=== PATIENT | female | born 1970 | race Native Hawaiian/Other Pacific Islander ===

== ENCOUNTER 2018-05-21 11:41 | Inpatient (IN) | payer OTHER ==
[2018-05-21 12:08] VITALS: BMI 19.0
--- NOTE | 2018-05-21 12:25 | C.PDOC ---
History Of Present Illness <Keyur Leung - Last Filed: 05/21/18 20:59> <My Palomino - Last Filed: 05/23/18 09:07> 47 year old female presents to the ED complaining of new onset shortness of breath and hypoxia since this morning. She has a history of metastatic breast cancer, currently pending finding clinical trial for her cancer. New onset of bilateral leg swelling. Denies chest pain, fever, or leg pain. Patient has a history of chronic cough. NEW ONSET SOB, HYPOXIA SINCE THIS MORNING. HO MET BREAST CA, CURRENTLY PENDING FINDING CLIN TRIAL FOR HER CANCER. NEW ONSET B/L LEG SWELL. NO CP. HO CHRONIC COUGH. NO FEVER. NO LEG PAIN EXAM MILD DIST NONTOXIC LUNGS R>L BASILAR RALES TACHYPNEA SPEAKING FULL SENTENCES CV RRR TACHY 1+PITTING EDEMA B/L REMAINDER NEG (My Palomino) <Keyur Leung - Last Filed: 05/21/18 20:59> History Per: Patient History/Exam Limitations: no limitations Onset/Duration Of Symptoms: Hrs Current Symptoms Are (Timing): Still Present Associated Symptoms: Ankle/Leg Swelling. denies: Fever, Chest Pain <My Palomino - Last Filed: 05/23/18 09:07> Time Seen by Provider: 05/21/18 12:25 Chief Complaint (Nursing): Shortness Of Breath Past Medical History Reviewed: Historical Data, Nursing Documentation, Vital Signs - Medical History Other PMH: Metastatic breast cancer Surgical History: Appendectomy (in [facility]), Cholecystectomy (in [facility]) Family History: States: Unknown Family Hx - Social History Hx Alcohol Use: No Hx Substance Use: No - Immunization History Hx Tetanus Toxoid Vaccination: No Hx Influenza Vaccination: No Hx Pneumococcal Vaccination: No <My Palomino - Last Filed: 05/23/18 09:07> Vital Signs: Last Vital Signs Temp 98.2 F 05/23/18 07:30 Pulse 105 H 05/23/18 08:29 Resp 18 05/23/18 07:30 BP 98/63 L 05/23/18 07:30 Pulse Ox 98 05/23/18 07:30 Review Of Systems Except As Marked, All Systems Reviewed And Found Negative. Constitutional: Negative for: Fever Cardiovascular: Positive for: Edema (Bilateral leg swelling ) Respiratory: Positive for: Shortness of Breath, Other (Hypoxia ) Musculoskeletal: Negative for: Leg Pain <My Palomino - Last Filed: 05/23/18 09:07> Physical Exam - Physical Exam Appears: Non-toxic, Other (Mild distress) Skin: Normal Color, Warm, Dry Head: Atraumatic, Normacephalic Eye(s): bilateral: Normal Inspection Nose: Normal Oral Mucosa: Moist Neck: Supple Chest: Symmetrical Cardiovascular: Edema (1+PITTING EDEMA B/L), Other (RRR, Tachycardic ) Respiratory: Rales (R>L BASILAR RALES), Other ( TACHYPNEA, SPEAKING FULL SENTENCES) Neurological/Psych: Oriented x3, Normal Speech Gait: Steady <My Palomino - Last Filed: 05/23/18 09:07> ED Course And Treatment - Laboratory Results Result Diagrams: 05/21/18 13:04 05/21/18 13:04 <Keyur Leung - Last Filed: 05/21/18 20:59> - Laboratory Results Result Diagrams: 05/21/18 13:04 05/21/18 13:04 ECG: Interpreted By Me, Viewed By Me ECG Rhythm: Sinus Tachycardia Rate From EC O2 Sat by Pulse Oximetry: 90 (RA) Pulse Ox Interpretation: Normal - CT Scan/US CT Chest Other Rad Studies (CT/US): Read By Radiologist, Radiology Report Reviewed CT/US Interpretation: Accession No. : [id number]. Patient Name / ID : ANTONIO Elizabeth / [id number]. Exam Date : 05/21/2018 15:53:04 ( Approved ) . Study Comment : Sex / Age : F / 47Y. Creator : Maryann Yun. Dictator : Ilir Lilly MD. [employer]fuels Research Scientist : Qc Analyst : Ilir Lilly MD. Approver2 : Report Date : 05/21/2018 15:59:54. My Comment : . CT chest pulmonary angiogram. History: Shortness of breath. History of metastatic cancer. Comparison: None available. Technique: Multiple contiguous axial images were performed through the chest utilizing pulmonary embolism protocol with the use of intravenous contrast. Subsequently, sagittal coronal reformatted images as well sagittal coronal MIPS reformatted images were obtained. This CT exam was performed using one or more of the following dose reduction techniques: Automated exposure control, adjustment of the mA and/or kV according to patient size, and/or use of iterative reconstruction technique. Findings: No evidence of acute pulmonary embolism. No evidence acute aortic dissection. Right lung: Moderate to large loculated right pleural effusion. Associated lobulated pleural thickening circumferentially involving the right geetha thorax as well as the fissures suggestive for pleural metastatic disease. Innumerable pulmonary masses throughout the right lung consistent with metastatic disease. For example at the right lung apex measuring 2.1 centimeters , right upper lobe measuring 8 millimeters more inferiorly within the right upper lobe measuring 1.4 centimeters. Additional pulmonary masses seen within the right middle and lower lobes. Focal consolidation and/or atelectasis within a large portion of right middle and lower lobes with some minimal aeration in the right lower lobe noted. Left lung: Small lobulated left pleural effusion with lobulated pleural thickening along the posterior aspect of the left lower lobe also concerning for pleural metastatic disease. Multiple pleural-based masses along the left geetha thorax for example within the left upper lobe laterally measuring up to 1.7 centimeters concerning for metastatic disease. Multiple pulmonary masses some of which are pleural-based seen throughout the left lung consistent with known metastatic disease. Innumerable pulmonary nodules and smaller pulmonary masses also noted throughout the lungs. Prominent mass for example is noted at the left upper lobe anteriorly measuring 2.1 centimeters on series 4, image 28 at the level of the prevascular space. There is tumor encasement of the left main pulmonary artery as well as encasement of the segmental vessels with tumor burden. Prominent consolidation and/or atelectasis of the inferior left upper lobe and lingula. Additional prominent consolidation in the posterior left lower lobe. Multiple pulmonary mass is noted within the left lower lobe. Trachea thru central airways are patent. No significant axillary adenopathy. Heterogeneity of the thyroid. Left paratracheal lymphadenopathy measures 3.8 centimeters. Tumor encasement of the left main pulmonary artery and branch vessels. Right hilar adenopathy measures 1.5 centimeters. Multiple low-attenuation foci/lesions throughout the liver with intrahepatic biliary ductal dilatation. Clinical correlation. Nodular thickening of the adrenal glands. Degenerative changes in the spine. Impression: No evidence of acute pulmonary embolism. Extensive metastatic disease within the lung duran as described above. Multiple areas of consolidation as described above in both lungs. Bilateral pleural effusions larger on the right. Prominent lymphadenopathy throughout the mediastinum with prominent tumor encasement of the left main pulmonary artery and branch vessels. Additional findings as above. Progress Note: Patient assessed and examined. CT angio chest ordered and reviewed. EKG and CXR ordered and reviewed by me. Patient given Lovenox 70mg SC. Labs ordered. <CandelarioMy - Last Filed: 05/23/18 09:07> Progress <Keyur Leung - Last Filed: 05/21/18 20:59> - Data Reviewed Data Reviewed: Lab, Diagnostic imaging, EKG, Old records - Critical Care Citical Care: Excluding Proc Time Critical Care Time: 90 minutes - Continuity of Care Discussed patient case with:: Patient, Family-HIPPA compliant, PMD <My Palomino - Last Filed: 05/23/18 09:07> - Re-Evaluation Re-evaluation Note: 05/21/18 16:46 EXAM UNCH. PERSIST HYPOXIA D/W DR Christina LEUNG WILL ADMIT (My Palomino) Disposition <Keyur Leung - Last Filed: 05/21/18 20:59> Counseled Patient/Family Regarding: Studies Performed, Diagnosis - Disposition Disposition Time: 16:47 - POA Present On Arrival: None <CandelarioMy - Last Filed: 05/23/18 09:07> - Disposition Disposition: HOSPITALIZED Condition: STABLE - Clinical Impression Clinical Impression: Hypoxemia, Dyspnea, Metastatic cancer <Keyur Leung - Last Filed: 05/21/18 20:59> - Scribe Statement The provider has reviewed the documentation as recorded by the Scribe <CandelarioMy - Last Filed: 05/23/18 09:07> - Scribe Statement Radha Dumont All medical record entries made by the Scribe were at my direction and personally dictated by me. I have reviewed the chart and agree that the record accurately reflects my personal performance of the history, physical exam, medical decision making, and the department course for this patient. I have also personally directed, reviewed, and agree with the discharge instructions and disposition. (My Palomino) Decision To Admit <Keyur Leung - Last Filed: 05/21/18 20:59> - Pt Status Changed To: Hospital Disposition Of: Inpatient - Admit Certification Admit to Inpatient:: After my assessment, the patient will require hospitalization for at least two midnights. This is because of the severity of symptoms shown, intensity of services needed, and/or the medical risk in this patient being treated as an outpatient. - InPatient: Physician Admission Certification: I certify that this patient requires 2 or more midnights of care for the following reason:: SEE NOTE - . Bed Request Type: Telemetry Admitting Physician: Keyur Leung <My Palomino - Last Filed: 05/23/18 09:07> - . Patient Diagnosis: Hypoxemia, Dyspnea, Metastatic cancer
[2018-05-21] MEDS ORDERED: Enoxaparin 40 mg Syringe SC STA (12:47)
[2018-05-21 13:11] LABS: BASO # 0.1 K/uL (0.0-0.2); BASO % 1.2 % (0.0-2.0); EOS # 0.6 K/uL (0.0-0.7); EOS % 7.5 % (0.0-4.0); LYMPH # 1.5 K/uL (1.0-4.3); LYMPH % 18.7 % (20.0-40.0); MEAN CELL VOLUME 85.8 fL (81.0-99.0); MEAN CORPUSCULAR HEMOGLOBIN 29.1 pg (27.0-31.0); MEAN CORPUSCULAR HGB CONC 33.9 g/dL (33.0-37.0); MEAN PLATELET VOLUME 6.2 fL (7.2-11.7); MONO # 0.7 K/uL (0.0-0.8); MONO % 9.5 % (0.0-10.0); NEUT % 63.1 % (50.0-75.0); RBC 4.45 Mil/uL (3.80-5.20); RED CELL DISTRIBUTION WIDTH 13.1 % (11.5-14.5); WHITE BLOOD COUNT 7.9 K/uL (4.8-10.8)
[2018-05-21 13:19] LABS: INR 1.1; PROTHROMBIN TIME 12.2 SECONDS (9.7-12.2)
[2018-05-21 13:22] LABS: ALB/GLOB RATIO 1.1 (1.0-2.1); ALBUMIN 4.1 g/dL (3.5-5.0); ALT/SGPT 35 U/L (9-52); AST/SGOT 46 U/L (14-36); BLOOD UREA NITROGEN 3 mg/dL (7-17); CALCIUM 9.3 mg/dl (8.6-10.4); GFR AFRICAN-AMERICAN > 60; GFR NON-AFRICAN AMERICAN > 60
[2018-05-21 13:34] LABS: B-TYPE NATRIURETIC PEPTIDE 1960 pg/mL (0-450)
[2018-05-21] MEDS ORDERED: Enoxaparin 80 mg Syringe ONE (13:51)
[2018-05-21 14:02] LABS: ABG ALLEN TEST POS; ARTERIAL BLOOD GAS HCO3 31.4 mmol/L (21-28); ARTERIAL BLOOD GAS O2 SAT 97.5 % (95-98); ARTERIAL BLOOD GAS PCO2 47 mm/Hg (35-45); ARTERIAL BLOOD GAS PH 7.46 (7.35-7.45); ARTERIAL BLOOD GAS PO2 79 mm/Hg (80-100); ARTERIAL BLOOD GAS TCO2 34.8 mmol/L (22-28)
[2018-05-21] MEDS ORDERED: Iodixanol 320 MG/ML 100 ML BOTTLE IV ONE (15:09)
--- NOTE | 2018-05-21 15:16 | RAD ---
Chest x-ray single frontal view History: Shortness of breath. History of metastatic cancer. Comparison: 05/21/2018 Findings: Moderate right and small left pleural effusion. Prominent focal consolidative changes seen at the right lung base and to a lesser extent left lung base. Nodular masslike opacity seen within the right mid lung zone. This may represent underlying metastatic disease. Prominent lobulated pleural thickening along the right geetha thorax from the right lung apex to the right lung base. Lobulated pleural density along the left lung apex. Bilateral hilar prominence. Cardiomegaly. Degenerative changes in the spine. Impression: Moderate right and small left pleural effusion. Prominent focal consolidative changes seen at the right lung base and to a lesser extent left lung base. Nodular masslike opacity seen within the right mid lung zone. This may represent underlying metastatic disease. Prominent lobulated pleural thickening along the right geetha thorax from the right lung apex to the right lung base. Lobulated pleural density along the left lung apex. Bilateral hilar prominence. Cardiomegaly.
--- NOTE | 2018-05-21 16:28 | CT ---
CT chest pulmonary angiogram History: Shortness of breath. History of metastatic cancer. Comparison: None available. Technique: Multiple contiguous axial images were performed through the chest utilizing pulmonary embolism protocol with the use of intravenous contrast. Subsequently, sagittal coronal reformatted images as well sagittal coronal MIPS reformatted images were obtained. This CT exam was performed using one or more of the following dose reduction techniques: Automated exposure control, adjustment of the mA and/or kV according to patient size, and/or use of iterative reconstruction technique. Findings: No evidence of acute pulmonary embolism. No evidence acute aortic dissection. Right lung: Moderate to large loculated right pleural effusion. Associated lobulated pleural thickening circumferentially involving the right geetha thorax as well as the fissures suggestive for pleural metastatic disease. Innumerable pulmonary masses throughout the right lung consistent with metastatic disease. For example at the right lung apex measuring 2.1 centimeters, right upper lobe measuring 8 millimeters more inferiorly within the right upper lobe measuring 1.4 centimeters. Additional pulmonary masses seen within the right middle and lower lobes. Focal consolidation and/or atelectasis within a large portion of right middle and lower lobes with some minimal aeration in the right lower lobe noted. Left lung: Small lobulated left pleural effusion with lobulated pleural thickening along the posterior aspect of the left lower lobe also concerning for pleural metastatic disease. Multiple pleural-based masses along the left geetha thorax for example within the left upper lobe laterally measuring up to 1.7 centimeters concerning for metastatic disease. Multiple pulmonary masses some of which are pleural-based seen throughout the left lung consistent with known metastatic disease. Innumerable pulmonary nodules and smaller pulmonary masses also noted throughout the lungs. Prominent mass for example is noted at the left upper lobe anteriorly measuring 2.1 centimeters on series 4, image 28 at the level of the prevascular space. There is tumor encasement of the left main pulmonary artery as well as encasement of the segmental vessels with tumor burden. Prominent consolidation and/or atelectasis of the inferior left upper lobe and lingula. Additional prominent consolidation in the posterior left lower lobe. Multiple pulmonary mass is noted within the left lower lobe. Trachea thru central airways are patent. No significant axillary adenopathy. Heterogeneity of the thyroid. Left paratracheal lymphadenopathy measures 3.8 centimeters. Tumor encasement of the left main pulmonary artery and branch vessels. Right hilar adenopathy measures 1.5 centimeters. Multiple low-attenuation foci/lesions throughout the liver with intrahepatic biliary ductal dilatation. Clinical correlation. Nodular thickening of the adrenal glands. Degenerative changes in the spine. Impression: No evidence of acute pulmonary embolism. Extensive metastatic disease within the lung duran as described above. Multiple areas of consolidation as described above in both lungs. Bilateral pleural effusions larger on the right. Prominent lymphadenopathy throughout the mediastinum with prominent tumor encasement of the left main pulmonary artery and branch vessels. Additional findings as above.
[2018-05-21] MEDS: Albuterol 0.083% Inhal Sol (2.5 mg/3 mL) UD INH SCH (20:24)
--- NOTE | 2018-05-21 20:54 | CP.PCM.HP ---
History of Present Illness - History of Present Illness History of Present Illness: > Pt had called emergently to be seen or prescribed abx for a cough that's been going on for about a month. Pt was coughing uncontrollably when seen. Auscultation showed wheezing in multiple places. Gave a trial of an inhaled steroid with a long acting beta-agonist. Pt felt relief in a few minutes, and had stopped coughing enough that she was able to tell her story. She had finished a bottle of Mucinex without relief in the last month. She had also been using her Ventolin which she had brought in at my request. I instructed pt on the correct way of using the inhaler, as she was not inhaling the medicine, which stayed in her mouth and subsequently released with the next exhalation. > Used the see 1, do 1 maxim using the inhaler, and pt felt immediate relief. > Because of the length of patient's illness, suggested that pt obtain a CXR to r/o pneumonia. Pt agreed to get it the same afternoon. > Received a call the following day around lunchtime, pt's 2 view xray showed possible malignancy especially in the upper lobes of both lungs. Called pt's oncologist within a few minutes and advised him of the results of the CXR and forwarded the report to him the same day, 03/15/2018. > Having discharged my task and turned her care to her oncologist, i was called in again to her case after she had a thoracentesis that resulted in severe pain for patient. Since I had received no updates from Oncology, plan was to try and stage while in patient. Unbeknownst to me, pt was scheduled for biopsy with IR the following day. No fasting schedule issued nor preliminary bloodwork ordered. When things were finally straightened outI had already gotten the gist of what was missing in the work up and proceeded to get it scheduled and done. Pathology came out 6 days later, and I obtained a copy of it for pt the following morning after she informed me the results were out. I scheduled also a face to face meeting the following Tuesday with patient and her family, where we discussed possible options for her treatment, which would probably be palliative at the most. Hence, pt is aware that her condition is without cure at the present time, and no protocol exists for treating it, as far as i can surmise. > This morning, I was called by the pt's daughter who reported that they couldn' t get her O2 sat above 90, and I advised them to bring her to this facility for further management and so that things could be set up to provide for pt's comfort at home, as well as get a 2nd opinion on other outstanding issues that can hopefully make pt more cofortable in her last days. Present on Admission - Present on Admission Any Indicators Present on Admission: No History of DVT/PE: No History of Uncontrolled Diabetes: No Urinary Catheter: No Decubitus Ulcer Present: No Review of Systems - Review of Systems Systems not reviewed;Unavailable: Respiratory Distress Review of Systems: above and coughing - Breasts Breasts: Other Additional comments: s/p mastectomy, R - Respiratory Respiratory: Cough, Dyspnea, Pain with Coughing, Other Additional comments: blood tinged-sputum Past Patient History - Past Medical History & Family History Past Medical History?: Yes - Past Social History Smoking Status: Never Smoked - PULMONARY Hx Pulmonary Edema: Yes - HEMATOLOGICAL/ONCOLOGICAL Hx Cancer: Yes Other/Comment: Breast CA and R lumpectomy/radiation - MUSCULOSKELETAL/RHEUMATOLOGICAL Hx Falls: No - GASTROINTESTINAL Hx Gall Bladder Disease: Yes Other/Comment: Cholecystectomy - GENITOURINARY/GYNECOLOGICAL Other/Comment: Hysterectomy d/t endometriosis - PSYCHIATRIC Hx Substance Use: No - SURGICAL HISTORY Hx Appendectomy: Yes (in [facility]) Hx Cholecystectomy: Yes (in [facility]) Hx Hysterectomy: Yes Other/Comment: R lumpectomy - ANESTHESIA Hx Anesthesia: Yes Hx Anesthesia Reactions: No Hx Malignant Hyperthermia: No Has any member of the family had a problem w/ anesthesia?: No Meds Allergies/Adverse Reactions: Allergies Allergy/AdvReac Type Severity Reaction Status Date / Time simvastatin Allergy Severe SWELLING Verified 05/21/18 12:00 Physical Exam - Constitutional Appears: In Acute Distress Additional comments: speaking in phrases - Head Exam Head Exam: ATRAUMATIC, NORMAL INSPECTION, NORMOCEPHALIC - Eye Exam Eye Exam: EOMI, Normal appearance Pupil Exam: NORMAL ACCOMODATION, PERRL - ENT Exam ENT Exam: absent: Mucous Membranes Dry, Mucous Membranes Moist, Normal Exam, Normal External Ear Exam, Normal Oropharynx, TM's Normal Bilaterally - Neck Exam Additional comments: + JVD - Respiratory Exam Respiratory Exam: Prolonged Expiratory Phase, Wheezes, Respiratory Distress - Cardiovascular Exam Cardiovascular Exam: Tachycardia, REGULAR RHYTHM - GI/Abdominal Exam GI & Abdominal Exam: Normal Bowel Sounds - Rectal Exam Rectal Exam: Deferred - Extremities Exam Extremities exam: Positive for: normal inspection - Back Exam Back exam: NORMAL INSPECTION - Neurological Exam Neurological exam: Alert - Psychiatric Exam Psychiatric exam: Depressed, Normal Mood Results - Vital Signs Recent Vital Signs: Last Vital Signs Temp 98.3 F 05/21/18 12:08 Pulse 113 H 05/21/18 20:24 Resp 22 05/21/18 18:32 BP 98/53 L 05/21/18 16:33 Pulse Ox 96 05/21/18 18:32 - Labs Result Diagrams: 05/21/18 13:04 05/21/18 13:04 Labs: Laboratory Results - last 24 hr 05/21/18 05/21/18 05/21/18 13:04 13:04 13:04 WBC 7.9 RBC 4.45 Hgb 13.0 Hct 38.2 MCV 85.8 MCH 29.1 MCHC 33.9 RDW 13.1 Plt Count 608 H MPV 6.2 L Neut % (Auto) 63.1 Lymph % (Auto) 18.7 L [place] % (Auto) 9.5 Eos % (Auto) 7.5 H Baso % (Auto) 1.2 Neut # (Auto) 5.0 Lymph # (Auto) 1.5 [place] # (Auto) 0.7 Eos # (Auto) 0.6 Baso # (Auto) 0.1 PT 12.2 INR 1.1 APTT 28 Puncture Site pCO2 pO2 HCO3 ABG pH ABG Total CO2 ABG O2 Saturation ABG Base Excess Christopher Test ABG Potassium Glucose Lactate Liter Flow Sodium 132 Potassium 4.5 Chloride 85 L Carbon Dioxide 37 H Anion Gap 14 BUN 3 L Creatinine 0.4 L Est GFR ( Amer) > 60 Est GFR (Non-Af Amer) > 60 Random Glucose 114 H Calcium 9.3 Total Bilirubin 0.6 AST 46 H ALT 35 Alkaline Phosphatase 129 H Troponin I < 0.0120 NT-Pro-B Natriuret Pep 1960 H Total Protein 7.9 Albumin 4.1 Globulin 3.8 Albumin/Globulin Ratio 1.1 Arterial Blood Potassium 05/21/18 13:57 WBC RBC Hgb Hct MCV MCH MCHC RDW Plt Count MPV Neut % (Auto) Lymph % (Auto) [place] % (Auto) Eos % (Auto) Baso % (Auto) Neut # (Auto) Lymph # (Auto) [place] # (Auto) Eos # (Auto) Baso # (Auto) PT INR APTT Puncture Site Lra pCO2 47 H pO2 79 L HCO3 31.4 H ABG pH 7.46 H ABG Total CO2 34.8 H ABG O2 Saturation 97.5 ABG Base Excess 8.3 H Christopher Test Pos ABG Potassium 3.5 L Glucose 101 Lactate 1.5 Liter Flow 2.0 Sodium 133.0 Potassium Chloride 96.0 L Carbon Dioxide Anion Gap BUN Creatinine Est GFR ( Amer) Est GFR (Non-Af Amer) Random Glucose Calcium Total Bilirubin AST ALT Alkaline Phosphatase Troponin I NT-Pro-B Natriuret Pep Total Protein Albumin Globulin Albumin/Globulin Ratio Arterial Blood Potassium 3.5 L Assessment & Plan (1) Metastatic breast cancer Assessment and Plan: revisit options for treatment, if any, including clinical trials for triple negative breast CA Status: Acute (2) Dyspnea Assessment and Plan: and Hypoxemia: consult Heme/Onc Dr. Vicente Calles. Discussed primarily lung mets surrounding the left brnchus. Broached topiuc to Heme/POnc if a possible palliative treatment to ease pt's hypoxia and tachypnea. Latter to discuss with Radiation Oncology Status: Acute (3) Hypoxemia Status: Acute (4) Fatigue due to sleep pattern disturbance Assessment and Plan: 2ndry to choking of air inflow by mets surrounding L bronchus Status: Acute (5) Cough Assessment and Plan: cough reflex working as expected in response to hypoxemia Status: Acute Decision To Admit - Pt Status Changed To: Hospital Disposition Of: Inpatient - Admit Certification Admit to Inpatient:: After my assessment, the patient will require hospitalization for at least two midnights. This is because of the severity of symptoms shown, intensity of services needed, and/or the medical risk in this patient being treated as an outpatient. - InPatient: Physician Admission Certification:: After my assessment, the patient will require hospitalization for at least two midnights. This is because of the severity of symptoms shown, intensity of services needed, and/or the medical risk in this patient being treated as an outpatient. - . Bed Request Type: Telemetry
[2018-05-21] MEDS: Enoxaparin 30 mg Syringe SC SCH (22:23)
[2018-05-21] MEDS: Promethazine/Cod 6.25mg-10mg/5ml Syr UD PO PRN (23:39)
[2018-05-22] MEDS: Albuterol 0.083% Inhal Sol (2.5 mg/3 mL) UD INH SCH ×6 (00:22→19:09)
[2018-05-22] MEDS: Promethazine/Cod 6.25mg-10mg/5ml Syr UD PO PRN (03:48)
[2018-05-22] MEDS: Enoxaparin 30 mg Syringe SC SCH ×2 (09:33→22:36)
--- NOTE | 2018-05-22 19:03 | CP.PCM.PN ---
Subjective - Date & Time of Evaluation Date of Evaluation: 05/22/18 Time of Evaluation: 19:02 - Subjective Subjective: Pt seen and examined at bedside. Awaiting consult on patient who was admitted for hypoxemia. In the meantime, working on pt's O2 need at home, and will order PT with and without O2 to determine baseline oxygenation status and justify insurance requirements for home O2. Late today, seen by Heme/Onc and recommendations to follow. Objective - Vital Signs/Intake and Output Vital Signs (last 24 hours): Temp Pulse Resp BP Pulse Ox 98 F 102 H 20 96/65 L 98 05/22/18 16:00 05/22/18 16:48 05/22/18 16:00 05/22/18 16:00 05/22/18 16:00 - Medications Medications: Current Medications Acetaminophen (Tylenol 325mg Tab) 650 mg PO Q6 PRN PRN Reason: Pain, moderate (4-7) Last Admin: 05/22/18 13:04 Dose: 650 mg Albuterol Sulfate (Albuterol 0.083% Inhal Yanci (2.5 Mg/3 Ml) Ud) 2.5 mg INH RQ4 JURGEN Last Admin: 05/22/18 16:05 Dose: Not Given Enoxaparin Sodium (Lovenox) 30 mg SC 1000,2200 JURGEN Last Admin: 05/22/18 09:33 Dose: 30 mg Morphine Sulfate (Morphine) 2 mg IVP Q3H JURGEN Last Admin: 05/22/18 09:35 Dose: Not Given Morphine Sulfate (Morphine Immediate Release Tab) 15 mg PO Q6 PRN PRN Reason: Pain, severe (8-10) Stop: 05/25/18 12:43 Pneumococcal Polyvalent Vaccine (Pneumovax 23 Vaccine) 0.5 ml IM .ONCE ONE Stop: 05/23/18 12:01 Promethazine HCl/Codeine (Phenergan/Codeine Oral Syrup) 5 ml PO Q4 PRN PRN 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 JVD) - Respiratory Exam Additional comments: + wheezing L>R - Cardiovascular Exam Cardiovascular Exam: REGULAR RHYTHM - GI/Abdominal Exam GI & Abdominal Exam: Normal Bowel Sounds - Rectal Exam Rectal Exam: Deferred - Neurological Exam Neurological Exam: Alert, Awake, CN II-XII Intact, Normal Gait, Oriented x3 Neuro motor strength exam: Left Upper Extremity: 4, Right Upper Extremity: 4, Left Lower Extremity: 3, Right Lower Extremity: 3 - Psychiatric Exam Psychiatric exam: Anxious, Depressed, Normal Mood - Skin Skin Exam: Dry, Intact, Normal Color Assessment and Plan (1) Metastatic breast cancer Assessment & Plan: stable at this. Awaiting Heme/Onc input as well as Pulmonary. Status: Acute (2) Dyspnea Assessment & Plan: on neb treatments Status: Acute (3) Hypoxemia Assessment & Plan: on continuous O2 Status: Acute (4) Fatigue due to sleep pattern disturbance Assessment & Plan: will start small dose of sedative or hypnotic to promote sleep Status: Acute (5) Cough Assessment & Plan: more from cough reflex 2ndry to inadequate oxygenation bec of pulmonary mets with decreased area for aeration Status: Acute
[2018-05-22] MEDS: Promethazine DM 6.25 mg-15 mg/5 ml Syrup PO SCH (20:45)
--- NOTE | 2018-05-22 22:17 | CP.PCM.CON ---
History of Present Illness - History of Present Illness History of Present Illness: 47 year old female with a history of stage IV breast cancer (triple negative) to the lymph nodes and lung, presenting with worsening shortness of breath, cough, and hypoxia. The patient is awaiting treatment on a clinical trial ( chemotherapy + parp inhibitor at [facility]) and has an appointment as [facility] for immunotherapy trial consideration. She was initially diagnosed with localized breast cancer and treated with neoadjuvant chemotherapy, followed by lumpectomy , and adjuvant radiotherapy. She was following with her oncologist Dr. Craft who sw her in February for her breathing complications. A percutaneous biopsy was done at [facility] which confirmed recurrent and metastatic breast cancer. She currently notes to progressive shortness of breath and cough. She denies fevers and chills. She does have chest pain with deep breathing. A CT angio of the chest was negative for PE. Past medical history: Stage IV breast cancer Past surgical history: Lumpectomy, port insertion and removal, appendectomy, cholecystectomy, hysterectomy Family history: Aunt had ovarian cancer in her 50s Social history: Denies tobacco, alcohol, and illicit drug use. Allergies: Simvastatin Review of systems: All remaining review of systems including HEENT, cardiovascular, respiratory, gastrointestinal, genitourinary, musculoskeletal, dermatologic, neurologic, and psychiatric are negative unless mentioned in the HPI Past Patient History - Past Medical History & Family History Past Medical History?: Yes - Past Social History Smoking Status: Never Smoked - PULMONARY Hx Pulmonary Edema: Yes - HEMATOLOGICAL/ONCOLOGICAL Hx Cancer: Yes Other/Comment: Breast CA and R lumpectomy/radiation - MUSCULOSKELETAL/RHEUMATOLOGICAL Hx Falls: No - GASTROINTESTINAL Hx Gall Bladder Disease: Yes Other/Comment: Cholecystectomy - GENITOURINARY/GYNECOLOGICAL Other/Comment: Hysterectomy d/t endometriosis - PSYCHIATRIC Hx Substance Use: No - SURGICAL HISTORY Hx [facility]ectomy: Yes (in [place] [facility]) Hx Cholecystectomy: Yes (in [facility]) Hx Hysterectomy: Yes Other/Comment: R lumpectomy - ANESTHESIA Hx Anesthesia: Yes Hx Anesthesia Reactions: No Hx Malignant Hyperthermia: No Has any member of the family had a problem w/ anesthesia?: No Meds Allergies/Adverse Reactions: Allergies Allergy/AdvReac Type Severity Reaction Status Date / Time simvastatin Allergy Severe SWELLING Verified 05/21/18 12:00 - Medications Medications: Current Medications Acetaminophen (Tylenol 325mg Tab) 650 mg PO Q6 PRN PRN Reason: Pain, moderate (4-7) Last Admin: 05/22/18 13:04 Dose: 650 mg Albuterol Sulfate (Albuterol 0.083% Inhal Yanci (2.5 Mg/3 Ml) Ud) 2.5 mg INH RQ4 JURGEN Last Admin: 05/22/18 19:09 Dose: 2.5 mg Enoxaparin Sodium (Lovenox) 30 mg SC 1000,2200 JURGEN Last Admin: 05/22/18 09:33 Dose: 30 mg Morphine Sulfate (Morphine) 2 mg IVP Q3H JURGEN Last Admin: 05/22/18 20:34 Dose: Not Given Morphine Sulfate (Morphine Immediate Release Tab) 15 mg PO Q6 PRN PRN Reason: Pain, severe (8-10) Stop: 05/25/18 12:43 Pneumococcal Polyvalent Vaccine (Pneumovax 23 Vaccine) 0.5 ml IM .ONCE ONE Stop: 05/23/18 12:01 Promethazine HCl/Codeine (Phenergan/Codeine Oral Syrup) 5 ml PO Q4 PRN PRN 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 Last Admin: 05/22/18 03:48 Dose: 5 ml Promethazine HCl/Dextromethorphan (Phenergan Dm Syrup) 5 ml PO Q6H [facility] Last Admin: 05/22/18 20:45 Dose: 5 ml Physical Exam - Head Exam Head Exam: ATRAUMATIC - Eye Exam Eye Exam: Normal appearance - ENT Exam ENT Exam: Mucous Membranes Dry - Respiratory Exam Respiratory Exam: NORMAL BREATHING PATTERN - Cardiovascular Exam Cardiovascular Exam: +S1, +S2 - GI/Abdominal Exam GI & Abdominal Exam: Normal Bowel Sounds - Extremities Exam Extremities exam: Positive for: pedal edema - Neurological Exam Neurological exam: Oriented x3 - Psychiatric Exam Psychiatric exam: Normal Affect, Normal Mood - Skin Skin Exam: Warm Results - Vital Signs Recent Vital Signs: Last Vital Signs Temp 98 F 05/22/18 16:00 Pulse 102 H 05/22/18 16:48 Resp 20 05/22/18 16:00 BP 96/65 L 05/22/18 16:00 Pulse Ox 98 05/22/18 16:00 - Labs Result Diagrams: 05/21/18 13:04 05/21/18 13:04 Assessment & Plan (1) Pleural effusion Assessment and Plan: pulmonary evaluation, thoracentesis evaluation given worsening pulmonary status likely malignant pleural effusion from breast cancer; recommend cytology evaluation if to have thoracentesis Status: Acute (2) Metastatic breast cancer Assessment and Plan: triple negative will add PD-L1 and MSI testing to pathology from 02/2018 biopsy at [facility] for immunotherapy determination recommend portacath insertion for outpatient treatment; may require chemotherapy +/- radiotherapy while awaiting clinical trial/immunotherapy determination outpatient appointment at [facility] for immunotherapy clinical trial discussion this Tuesday Status: Acute (3) Thrombocytosis Assessment and Plan: likely reactive to malignancy; no current treatment need. Thank you for this interesting consult. Status: Acute
[2018-05-23] MEDS: Promethazine DM 6.25 mg-15 mg/5 ml Syrup PO SCH ×4 (00:24→19:00)
[2018-05-23] MEDS: Albuterol 0.083% Inhal Sol (2.5 mg/3 mL) UD INH SCH ×6 (00:55→19:19)
[2018-05-23 06:09] LABS: ABG ALLEN TEST POS; ARTERIAL BLOOD GAS HCO3 33.2 mmol/L (21-28); ARTERIAL BLOOD GAS HEMOGLOBIN 11.7 g/dL (11.7-17.4); ARTERIAL BLOOD GAS O2 SAT 91.9 % (95-98); ARTERIAL BLOOD GAS PCO2 51 mm/Hg (35-45); ARTERIAL BLOOD GAS PH 7.46 (7.35-7.45); ARTERIAL BLOOD GAS PO2 52 mm/Hg (80-100); ARTERIAL BLOOD GAS TCO2 37.9 mmol/L (22-28)
[2018-05-23] MEDS: Enoxaparin 30 mg Syringe SC SCH ×2 (09:08→22:21)
--- NOTE | 2018-05-23 10:20 | RAD ---
Date of service: 05/23/2018 HISTORY: quantify pleural effusion and determine benefit vs COMPARISON: Chest radiograph dated 05/21/2018. TECHNIQUE: Chest PA and lateral FINDINGS: LUNGS: Pulmonary vascular congestion. Bibasilar atelectasis. Pulmonary nodule/ masses seen at the left apex and along the peripheral left upper and midlung redemonstrated. PLEURA: Moderate right and small left pleural effusions, grossly stable. Loculated effusion along the right lateral and apical convexity, unchanged. No pneumothorax apparent. CARDIOVASCULAR: Cardiomediastinal silhouette unchanged. OSSEOUS STRUCTURES: Unchanged. VISUALIZED UPPER ABDOMEN: Normal. OTHER FINDINGS: None. IMPRESSION: Stable appearance of moderate to large loculated right pleural effusion and small left pleural effusions. Re- demonstration of pulmonary nodules/masses.
--- NOTE | 2018-05-23 10:28 | RAD ---
Date of service: 05/23/2018 PROCEDURE: Chest x-ray (decubitus views) HISTORY: quantify pleural effusion and determine benefit vs COMPARISON: Chest radiograph performed approximately 20 minutes prior TECHNIQUE: AP left and right lateral decubitus views of the chest FINDINGS: Previously described moderate to large right and small left pleural effusions appear loculated without significant change in configuration on either decubitus view. IMPRESSION: Loculated moderate to large right and small left pleural effusions.
[2018-05-23] MEDS ORDERED: Pneumococcal 23-Valent Vaccine IM ONE (12:00)
--- NOTE | 2018-05-23 16:52 | CP.PCM.PN ---
Subjective - Date & Time of Evaluation Date of Evaluation: 05/23/18 Time of Evaluation: 13:00 - Subjective Subjective: Has cough, daughter at bedside Objective - Vital Signs/Intake and Output Vital Signs (last 24 hours): Temp Pulse Resp BP Pulse Ox 98.2 F 109 H 18 112/74 90 L 05/23/18 07:30 05/23/18 16:00 05/23/18 07:30 05/23/18 14:02 05/23/18 09:08 Intake and Output: 05/23/18 05/23/18 06:59 18:59 Intake Total 100 250 Balance 100 250 - Medications Medications: Current Medications Acetaminophen (Tylenol 325mg Tab) 650 mg PO Q6 PRN PRN Reason: Pain, moderate (4-7) Last Admin: 05/23/18 09:07 Dose: 650 mg Albuterol Sulfate (Albuterol 0.083% Inhal Yanci (2.5 Mg/3 Ml) Ud) 2.5 mg INH RQ4 JURGEN Last Admin: 05/23/18 15:58 Dose: 2.5 mg Enoxaparin Sodium (Lovenox) 30 mg SC 1000,2200 JURGEN Last Admin: 05/23/18 09:08 Dose: 30 mg Morphine Sulfate (Morphine) 2 mg IVP Q3H JURGEN Last Admin: 05/23/18 13:59 Dose: 2 mg Morphine Sulfate (Morphine Immediate Release Tab) 15 mg PO Q6 PRN PRN Reason: Pain, severe (8-10) Stop: 05/25/18 12:43 Promethazine HCl/Codeine (Phenergan/Codeine Oral Syrup) 5 ml PO Q4 PRN 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 Last Admin: 05/22/18 03:48 Dose: 5 ml Promethazine HCl/Dextromethorphan (Phenergan Dm Syrup) 5 ml PO Q6H JURGEN Last Admin: 05/23/18 15:30 Dose: Not Given Zolpidem Tartrate (Ambien) 5 mg PO HS PRN PRN Reason: Insomnia Last Admin: 05/23/18 00:48 Dose: 5 mg - Labs Labs: 05/21/18 13:04 05/21/18 13:04 PT 12.2 SECONDS (9.7-12.2) 05/21/18 13:04 INR 1.1 05/21/18 13:04 APTT 28 SECONDS (21-34) 05/21/18 13:04 - Head Exam Head Exam: ATRAUMATIC - Eye Exam Eye Exam: Normal appearance - ENT Exam ENT Exam: Mucous Membranes Dry - Respiratory Exam Respiratory Exam: Decreased Breath Sounds - Cardiovascular Exam Cardiovascular Exam: +S1, +S2 - GI/Abdominal Exam GI & Abdominal Exam: Normal Bowel Sounds - Extremities Exam Extremities Exam: Pedal Edema - Neurological Exam Neurological Exam: Oriented x3 - Psychiatric Exam Psychiatric exam: Normal Affect, Normal Mood - Skin Skin Exam: Warm Assessment and Plan (1) Pleural effusion Assessment & Plan: suspect malignant effusion pulmonary evaluation, recommend thoracentesis and sending pleural fluid for cytology Status: Acute (2) Metastatic breast cancer Assessment & Plan: stage IV triple negative recommend portacath placement by surgery outpatient clinical trial evaluation outpatient f/u for further treatment Status: Acute (3) Thrombocytosis Assessment & Plan: reactive from malignancy, no treatment required Status: Acute
--- NOTE | 2018-05-23 17:15 | CP.PCM.CON ---
History of Present Illness - History of Present Illness History of Present Illness: 47F with PMHx of breast cancer presents to [facility] with recurrent breast cancer and metastatic disease. Patient was seen in the ED due to severe shortness of breath. She started with persistent coughing since January which she thought was due to allergies. Her symptoms worsened up until the onset of her shortness of breath. She reports copious, non-bloody sputum when coughing. CT chest was taken and revealed recurrence of breast cancer with metastatic disease. PMHx -breast cancer PSHx - R lumpectomy, cholecystectomy, hysterectomy, Portocath insertion Allergies - simvastatin Past Hospitalization - Thoracocentesis Social History - non-smoker, non-drinker, non-drug user Review of Systems - Constitutional Constitutional: absent: Chills, Fever, Night Sweats - Breasts Breasts: As Per HPI - Respiratory Respiratory: Pain with Coughing - Gastrointestinal Gastrointestinal: absent: Abdominal Pain, Bloating, Constipation - Genitourinary Genitourinary: absent: Difficulty Urinating, Dysuria, Flank Pain, Hematuria Past Patient History - Past Medical History & Family History Past Medical History?: Yes - Past Social History Smoking Status: Never Smoked - PULMONARY Hx Pulmonary Edema: Yes - HEMATOLOGICAL/ONCOLOGICAL Hx Cancer: Yes Other/Comment: Breast CA and R lumpectomy/radiation - MUSCULOSKELETAL/RHEUMATOLOGICAL Hx Falls: No - GASTROINTESTINAL Hx Gall Bladder Disease: Yes Other/Comment: Cholecystectomy - GENITOURINARY/GYNECOLOGICAL Other/Comment: Hysterectomy d/t endometriosis - PSYCHIATRIC Hx Substance Use: No - SURGICAL HISTORY Hx Appendectomy: Yes (in [facility]) Hx Cholecystectomy: Yes (in [facility]) - ANESTHESIA Hx Anesthesia: Yes Hx Anesthesia Reactions: No Hx Malignant Hyperthermia: No Has any member of the family had a problem w/ anesthesia?: No Meds Allergies/Adverse Reactions: Allergies Allergy/AdvReac Type Severity Reaction Status Date / Time simvastatin Allergy Severe SWELLING Verified 05/21/18 12:00 - Medications Medications: Current Medications Acetaminophen (Tylenol 325mg Tab) 650 mg PO Q6 PRN PRN Reason: Pain, moderate (4-7) Last Admin: 05/23/18 09:07 Dose: 650 mg Albuterol Sulfate (Albuterol 0.083% Inhal Yanci (2.5 Mg/3 Ml) Ud) 2.5 mg INH RQ4 JURGEN Last Admin: 05/23/18 15:58 Dose: 2.5 mg Enoxaparin Sodium (Lovenox) 30 mg SC 1000,2200 [facility] Last Admin: 05/23/18 09:08 Dose: 30 mg Morphine Sulfate (Morphine) 2 mg IVP Q3H [facility] Last Admin: 05/23/18 13:59 Dose: 2 mg Morphine Sulfate (Morphine Immediate Release Tab) 15 mg PO Q6 PRN PRN Reason: Pain, severe (8-10) Stop: 05/25/18 12:43 Promethazine HCl/Codeine (Phenergan/Codeine Oral Syrup) 5 ml PO Q4 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 absent: Accessory Muscle Use, Decreased Breath Sounds, Prolonged Expiratory Phase - Cardiovascular Exam Cardiovascular Exam: REGULAR RHYTHM, +S1, +S2. absent: Bradycardia, Tachycardia , Diastolic murmur - Extremities Exam Extremities exam: Positive for: normal inspection. Negative for: calf tenderness, joint swelling - Neurological Exam Neurological exam: Alert, Normal Gait, Oriented x3 - Psychiatric Exam Psychiatric exam: Normal Affect, Normal Mood - Skin Skin Exam: Dry, Intact, Normal Color Results - Vital Signs Recent Vital Signs: Last Vital Signs Temp 98.7 F 05/23/18 15:00 Pulse 109 H 05/23/18 16:00 Resp 18 05/23/18 15:00 BP 98/60 L 05/23/18 15:00 Pulse Ox 97 05/23/18 15:00 - Labs Result Diagrams: 05/23/18 21:19 05/23/18 21:19 Labs: Laboratory Results - last 24 hr 05/23/18 05:45 Puncture Site L rad pCO2 51 H pO2 52 L HCO3 33.2 H ABG pH 7.46 H ABG Total CO2 37.9 H ABG O2 Saturation 91.9 L ABG Base Excess 10.8 H ABG Hemoglobin 11.7 ABG Carboxyhemoglobin 2.1 H POC ABG HHb (Measured) 7.8 H ABG Methemoglobin 1.2 Christopher Test Pos A-a O2 Difference 34.0 Respiratory Index 0.7 Hgb O2 Saturation 88.9 L Liter Flow 0 FiO2 21.0 Assessment & Plan - Assessment and Plan (Free Text) Assessment: 47F presents with recurrent breast cancer with metastatic disease Plan: -Portacath cancelled -patient going to [facility] for immunotherapy -No further intervention needed at this time -Discussed with Dr. Bartolo Lopez PGY2
--- NOTE | 2018-05-23 21:00 | CP.PCM.CON ---
History of Present Illness - History of Present Illness History of Present Illness: Chief complaints: Pulmonary evaluation for shortness of breath HPI: 47-year-old female with a history of breast cancer diagnosed in 2014, patient is with the chemotherapy, radiation, and surgical intervention, following that the patient was doing well until recently 3 months ago she started having gradually worsening shortness of breath, cough. The patient underwent outpatient workup including thoracentesis, and also biopsy , but as the patient was being evaluated her condition got worse, she came to the emergency room. Patient came to the emergency room with worsening shortness of breath, and associated with the low oxygen, and hypoxia. She was also having bilateral leg swelling. The cough is very intense, especially when she is lying down worsening cough noted, unable to lie flat because of that. She is also feeling extremely sweating, associated with the choking sensation with the cough. No vomiting noted. Past medical history: Breast cancer, and now having possible metastatic lesions. Allergies simvastatin Personal history non-smoker nonalcoholic Family history: Patient currently lives with the family members, she has 2 kids. in the accident. Review of system: Patient is having poor intake, weight loss noted, cough progressively worsening , shortness of breath noted, sweating present, respiration noted. Leg swelling noted On examination: Vital signs noted. Mild tachycardia noted, temperature 97.6 blood pressure 93/66 pulse 75 respiration rate is 20. Saturation nasal cannula 98% Chest bilateral diffuse rhonchi and wheezing noted. Accessory muscles noted. Regular heart sound. Abdomen soft. Nontender. Extremities 1+ edema noted Labs reviewed Nonspecific. Mild elevation of the proBNP level noted. ABG showing evidence of mild hypoxia. But the 2 L saturation is 97.5%. CAT scan of the chest is showing diffuse lung disease. No evidence of pulmonary embolism Extensive metastatic disease involving the both lung duran Multiple areas of consolidation Bilateral loculated pleural effusion right greater than the left. Prominent lymphadenopathy throughout the mediastinum with encasement of left main pulmonary artery and branch vessels Assessment and recommendation: 47-year-old female with a history of breast cancer now with worsening shortness of breath, and possible hypoxia. Patient now admitted with the severe respiratory symptoms. Symptoms related to worsening lung condition. Patient has a diffuse metastatic lung disease secondary to breast cancer. Because of the high tumor burden patient is having increasing work of breathing , shortness of breath, hypoxia. Loculated pleural effusion, most likely secondary to metastatic disease, not a candidate for thoracentesis therapeutically, but the possible indwelling catheter to improve the respiratory system. We will discuss with interventional radiologist. Continue the oxygen, bronchodilators. DVT and GI prophylaxis. Discussed with the PMD. Past Patient History - Past Medical History & Family History Past Medical History?: Yes - Past Social History Smoking Status: Never Smoked - PULMONARY Hx Pulmonary Edema: Yes - HEMATOLOGICAL/ONCOLOGICAL Hx Cancer: Yes Other/Comment: Breast CA and R lumpectomy/radiation - MUSCULOSKELETAL/RHEUMATOLOGICAL Hx Falls: No - GASTROINTESTINAL Hx Gall Bladder Disease: Yes Other/Comment: Cholecystectomy - GENITOURINARY/GYNECOLOGICAL Other/Comment: Hysterectomy d/t endometriosis - PSYCHIATRIC Hx Substance Use: No - SURGICAL HISTORY [place] Hx [facility] [place] [facility] [facility] - ANESTHESIA Hx Anesthesia: Yes Hx Anesthesia Reactions: No Hx Malignant Hyperthermia: No Has any member of the family had a problem w/ anesthesia?: No Meds Allergies/Adverse Reactions: Allergies Allergy/AdvReac Type Severity Reaction Status Date / Time simvastatin Allergy Severe SWELLING Verified 05/21/18 12:00 - Medications Medications: Current Medications Acetaminophen (Tylenol 325mg Tab) 650 mg PO Q6 PRN PRN Reason: Pain, moderate (4-7) Last Admin: 05/23/18 17:36 Dose: 650 mg Albuterol Sulfate (Albuterol 0.083% Inhal Yanci (2.5 Mg/3 Ml) Ud) 2.5 mg INH RQ4 JURGEN Last Admin: 05/23/18 19:19 Dose: 2.5 mg Enoxaparin Sodium (Lovenox) 30 mg SC 1000,2200 JURGEN Last Admin: 05/23/18 09:08 Dose: 30 mg Morphine Sulfate (Morphine) 2 mg IVP Q3H [facility]URGEN Last Admin: 05/23/18 16:00 Dose: Not Given Morphine Sulfate (Morphine Immediate Release Tab) 15 mg PO Q6 PRN PRN Reason: Pain, severe (8-10) Stop: 05/25/18 12:43 Promethazine HCl/Codeine (Phenergan/Codeine Oral Syrup) 5 ml PO Q4 PRN 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2 H ABG pH 7.46 H ABG Total CO2 37.9 H ABG O2 Saturation 91.9 L ABG Base Excess 10.8 H ABG Hemoglobin 11.7 ABG Carboxyhemoglobin 2.1 H POC ABG HHb (Measured) 7.8 H ABG Methemoglobin 1.2 Christopher Test Pos A-a O2 Difference 34.0 Respiratory Index 0.7 Hgb O2 Saturation 88.9 L Liter Flow 0 FiO2 21.0
--- NOTE | 2018-05-23 21:04 | CP.PCM.PN ---
Subjective - Date & Time of Evaluation Date of Evaluation: 05/23/18 Time of Evaluation: 21:02 - Subjective Subjective: Patient is still having some shortness of breath. Oxygen saturation is on the low side with room air. Coughing noted. No chest pain. Poor intake noted. Vital signs stable otherwise. Chest bilateral good air entry in the upper lung duran, decreased in the lower lung duran. Regular heart sound. Nontender abdomen. Edema noted Patient scheduled to have the Port-A-Cath. Assessment and recommendation: 47-year-old female with a metastatic breast cancer, bilateral pleural effusion, metastatic lung disease. In my opinion because of the loculated nature of the fluid and the malignant nature possibly hemorrhagic I recommended pigtail catheter if possible bilaterally to improve the patient the respiration. Interventional radiology pigtail catheter ordered. We will speak to IR the morning. Objective - Vital Signs/Intake and Output Vital Signs (last 24 hours): Temp Pulse Resp BP Pulse Ox 98.7 F 109 H 18 98/60 L 97 05/23/18 15:00 05/23/18 16:00 05/23/18 15:00 05/23/18 15:00 05/23/18 15:00 Intake and Output: 05/23/18 05/24/18 18:59 06:59 Intake Total 250 Balance 250 - Medications Medications: Current Medications Acetaminophen (Tylenol 325mg Tab) 650 mg PO Q6 PRN PRN Reason: Pain, moderate (4-7) Last Admin: 05/23/18 17:36 Dose: 650 mg Albuterol Sulfate (Albuterol 0.083% Inhal Yanci (2.5 Mg/3 Ml) Ud) 2.5 mg INH RQ4 [facility] Last Admin: 05/23/18 19:19 Dose: 2.5 mg Enoxaparin Sodium (Lovenox) 30 mg SC 1000,2200 [facility] Last Admin: 05/23/18 09:08 Dose: 30 mg Morphine Sulfate (Morphine) 2 mg IVP Q3H [facility] Last Admin: 05/23/18 16:00 Dose: Not Given Morphine Sulfate (Morphine Immediate Release Tab) 15 mg PO Q6 PRN PRN Reason: Pain, severe (8-10) Stop: 05/25/18 12:43 Promethazine HCl/Codeine (Phenergan/Codeine Oral Syrup) 5 ml PO Q4 PRN PRN 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
[2018-05-23 21:24] LABS: BASO # 0.1 K/uL (0.0-0.2); BASO % 0.8 % (0.0-2.0); EOS # 1.3 K/uL (0.0-0.7); HEMOGLOBIN 11.7 g/dL (11.0-16.0); LYMPH # 1.6 K/uL (1.0-4.3); LYMPH % 16.6 % (20.0-40.0); MEAN CELL VOLUME 86.8 fL (81.0-99.0); MEAN CORPUSCULAR HEMOGLOBIN 28.2 pg (27.0-31.0); MEAN CORPUSCULAR HGB CONC 32.5 g/dL (33.0-37.0); MONO # 0.8 K/uL (0.0-0.8); MONO % 8.5 % (0.0-10.0); NEUT % 61.1 % (50.0-75.0); NRBC % 0.1 % (0.0-2.0); RBC 4.15 Mil/uL (3.80-5.20); WHITE BLOOD COUNT 9.9 K/uL (4.8-10.8)
[2018-05-23 21:33] LABS: INR 1.1
[2018-05-23 21:51] LABS: ALBUMIN 3.7 g/dL (3.5-5.0); ALT/SGPT 33 U/L (9-52); AST/SGOT 45 U/L (14-36); BLOOD UREA NITROGEN 7 mg/dL (7-17); CALCIUM 8.9 mg/dl (8.6-10.4); GFR AFRICAN-AMERICAN > 60; GFR NON-AFRICAN AMERICAN > 60
[2018-05-24] MEDS: Albuterol 0.083% Inhal Sol (2.5 mg/3 mL) UD INH SCH ×6 (00:56→20:07)
[2018-05-24] MEDS: Promethazine DM 6.25 mg-15 mg/5 ml Syrup PO SCH ×4 (01:00→23:00)
--- NOTE | 2018-05-24 09:49 | PCM.SURG1 ---
Surgeon's Initial Post Op Note - Surgeon's Notes Surgeon: Michael Sparks MD Folder Gluer Operator: NONE Type of Anesthesia: Local Pre-Operative Diagnosis: Metastatic breast cancer, bilateral pleural effusion, dyspnea Operative Findings: CT showed nodular pleural thickening, loculated effusion. US showed moderate effusion left and righ tlung. Post-Operative Diagnosis: Metastatic breast cancer, bilateral pleural effusion, dyspnea Operation Performed: Right and left 8.5 Fr pigtail pleural drainage catheter placement. Specimen/Specimens Removed: none Estimated Blood Loss: EBL {In ML}: 2 Blood Products Given: N/A Drains Used: No Drains Post-Op Condition: Fair Date of Surgery/Procedure: 05/24/18 Time of Surgery/Procedure: 09:45
[2018-05-24] MEDS ORDERED: Potassium Chloride 20 mEq ER Tab PO PRN (10:00)
[2018-05-24] MEDS: Morphine 15 mg Immediate Release Tab PO PRN (19:16)
[2018-05-25] MEDS: Albuterol 0.083% Inhal Sol (2.5 mg/3 mL) UD INH SCH ×7 (00:06→23:43)
[2018-05-25] MEDS: Promethazine DM 6.25 mg-15 mg/5 ml Syrup PO SCH ×5 (01:00→20:00)
[2018-05-25] MEDS: Morphine 15 mg Immediate Release Tab PO PRN ×2 (02:36→12:06)
[2018-05-25] MEDS: Potassium Chloride 20 mEq ER Tab PO SCH (10:03)
--- NOTE | 2018-05-25 10:24 | RAD ---
Date of service: 05/24/2018 HISTORY: Chest tube COMPARISON: 05/25/2018 at 0922 hours and 05/24/2018 portable chest x-ray 2015 hours FINDINGS: LUNGS: The bilateral rounded and very masses compatible with patient's known Meniere parenchymal and pleural parenchymal metastases are renoted these findings are most pronounced over the inferior half of each hemithorax right greater than left. No interval change in the appearance is appreciated. The size of much earlier pleural effusions and or loculated effusions also appears similar to the most recent the chest x-ray. At each costophrenic angle there is a pigtail type catheter that on the right suggests the small right inferolateral pneumothorax just above this is a chest tube tip a mid right lung level-similar in appearance conceivably a minute left basal pneumothorax cannot be excluded contiguous with the pigtail type catheter in place. No interval apical pneumothoraces seen. Right apical pleural parenchymal thickening with nodular contour similar. PLEURA: As above CARDIOVASCULAR: Cardiomegaly-similar blending hilar and mediastinal lymphadenopathy inferred overall cardio mid mediastinal prominent silhouette unchanged. OSSEOUS STRUCTURES: No significant abnormalities. VISUALIZED UPPER ABDOMEN: Normal. OTHER FINDINGS: None. IMPRESSION: No interval change seen compared with the 05/24/2018 study at 2015 hours small pigtail type catheters at each lung base without minimal new small right inferolateral pneumothorax is similar in appearance. The chest tube above this is similar in appearance. Overall known pulmonary and pleural base metastatic disease/opacities are similar. Though megaly and this inferred bulky mediastinal hilar lymphadenopathy similar appearing Comments if further evaluation or clarification of the sizes and specific locations of the minimal pneumothoraces is needed, CT would be more sensitive in this regard.
--- NOTE | 2018-05-25 10:45 | RAD ---
Date of service: 05/25/2018 HISTORY: Pneumothorax. COMPARISON: 05/24/2018 FINDINGS: LUNGS: Multiple pulmonary masses unchanged. PLEURA: Pigtail catheters in the pleural spaces bilaterally. Small basilar pneumothoraces again identified. CARDIOVASCULAR: Normal. OSSEOUS STRUCTURES: No significant abnormalities. VISUALIZED UPPER ABDOMEN: Normal. OTHER FINDINGS: None. IMPRESSION: No significant interval change compared to the prior examination(s). Specifically pigtail catheters in the pleural space is unchanged in position as are small basilar pneumothoraces. Stable pulmonary metastasis.
[2018-05-25] MEDS: Promethazine/Cod 6.25mg-10mg/5ml Syr UD PO PRN (11:43)
--- NOTE | 2018-05-25 19:19 | CP.PCM.PN ---
Subjective - Date & Time of Evaluation Date of Evaluation: 05/24/18 Time of Evaluation: 15:00 - Subjective Subjective: Has pain post chest tube insertions Objective - Vital Signs/Intake and Output Vital Signs (last 24 hours): Temp Pulse Resp BP Pulse Ox 97.2 F L 110 H 20 89/67 L 100 05/25/18 15:03 05/25/18 16:00 05/25/18 15:03 05/25/18 15:03 05/25/18 15:03 Intake and Output: 05/25/18 05/26/18 18:59 06:59 Intake Total 300 Output Total 110 Balance 190 - Medications Medications: Current Medications Acetaminophen (Tylenol 325mg Tab) 650 mg PO Q6 PRN PRN Reason: Pain, moderate (4-7) Last Admin: 05/24/18 06:21 Dose: 650 mg Albuterol Sulfate (Albuterol 0.083% Inhal Yanci (2.5 Mg/3 Ml) Ud) 2.5 mg INH RQ4 [facility] Last Admin: 05/25/18 16:03 Dose: 2.5 mg Bisacodyl (Dulcolax) 10 mg [place] DAILY PRN PRN Reason: Constipation Docusate Sodium (Colace) 200 mg PO AC [facility] Last Admin: 05/25/18 17:43 Dose: 200 mg Enoxaparin Sodium (Lovenox) 30 mg SC 1000,2200 [facility] Last Admin: 05/23/18 22:21 Dose: 30 mg Morphine Sulfate (Morphine) 2 mg IVP Q3H PRN PRN Reason: for moderate to severe pain Last Admin: 05/25/18 10:02 Dose: 2 mg Morphine Sulfate (Morphine Immediate Release Tab) 15 mg PO Q6 PRN PRN Reason: Pain, severe (8-10) Potassium Chloride (K-Dur 20 Meq Er Tab) 20 meq PO DAILY [facility] Last Admin: 05/25/18 10:03 Dose: 20 meq Promethazine HCl/Codeine (Phenergan/Codeine Oral Syrup) 5 ml PO Q4 PRN PRN 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 Last Admin: 05/25/18 11:43 Dose: 5 ml Promethazine HCl/Dextromethorphan (Phenergan Dm Syrup) 5 ml PO Q6H [facility] Last Admin: 05/25/18 15:50 Dose: Not Given Zolpidem Tartrate (Ambien) 5 mg PO HS PRN PRN Reason: Insomnia Last Admin: 05/23/18 23:36 Dose: 5 mg - Labs Labs: 05/23/18 21:19 05/23/18 21:19 PT 12.0 SECONDS (9.7-12.2) 05/23/18 21:19 INR 1.1 05/23/18 21:19 APTT 29 SECONDS (21-34) 05/23/18 21:19 - Head Exam Head Exam: ATRAUMATIC - Eye Exam Eye Exam: Normal appearance - ENT Exam ENT Exam: Mucous Membranes Dry - Respiratory Exam Respiratory Exam: Decreased Breath Sounds - Cardiovascular Exam Cardiovascular Exam: +S1, +S2 - GI/Abdominal Exam GI & Abdominal Exam: Normal Bowel Sounds Assessment and Plan (1) Pleural effusion Assessment & Plan: likely malignant s/p pigtail catheters f/u cytology Status: Acute (2) Metastatic breast cancer Assessment & Plan: stage IV triple negative outpatient treatment for immunotherapy trial investigation at [facility] [place] may require chemotherapy +/- radiotherapy while bridging to trial/immunotherapy consideration Status: Acute (3) Thrombocytosis Assessment & Plan: likely reactive to malignancy Status: Acute
--- NOTE | 2018-05-25 19:22 | CP.PCM.PN ---
Subjective - Date & Time of Evaluation Date of Evaluation: 05/25/18 Time of Evaluation: 16:00 - Subjective Subjective: On bipap, daughter at bedside Objective - Vital Signs/Intake and Output Vital Signs (last 24 hours): Temp Pulse Resp BP Pulse Ox 97.2 F L 110 H 20 89/67 L 100 05/25/18 15:03 05/25/18 16:00 05/25/18 15:03 05/25/18 15:03 05/25/18 15:03 Intake and Output: 05/25/18 05/26/18 18:59 06:59 Intake Total 300 Output Total 110 Balance 190 - Medications Medications: Current Medications Acetaminophen (Tylenol 325mg Tab) 650 mg PO Q6 PRN PRN Reason: Pain, moderate (4-7) Last Admin: 05/24/18 06:21 Dose: 650 mg Albuterol Sulfate (Albuterol 0.083% Inhal Yanci (2.5 Mg/3 Ml) Ud) 2.5 mg INH RQ4 [facility] Last Admin: 05/25/18 16:03 Dose: 2.5 mg Bisacodyl (Dulcolax) 10 mg IN DAILY PRN PRN Reason: Constipation Docusate Sodium (Colace) 200 mg PO AC [facility] Last Admin: 05/25/18 17:43 Dose: 200 mg Enoxaparin Sodium (Lovenox) 30 mg SC 1000,2200 [facility] Last Admin: 05/23/18 22:21 Dose: 30 mg Morphine Sulfate (Morphine) 2 mg IVP Q3H PRN PRN Reason: for moderate to severe pain Last Admin: 05/25/18 10:02 Dose: 2 mg Morphine Sulfate (Morphine Immediate Release Tab) 15 mg PO Q6 PRN PRN Reason: Pain, severe (8-10) Potassium Chloride (K-Dur 20 Meq Er Tab) 20 meq PO DAILY [facility] Last Admin: 05/25/18 10:03 Dose: 20 meq Promethazine HCl/Codeine (Phenergan/Codeine Oral Syrup) 5 ml PO Q4 PRN PRN 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 Last Admin: 05/25/18 11:43 Dose: 5 ml Promethazine HCl/Dextromethorphan (Phenergan Dm Syrup) 5 ml PO Q6H [facility] Last Admin: 05/25/18 15:50 Dose: Not Given Zolpidem Tartrate (Ambien) 5 mg PO HS PRN PRN Reason: Insomnia Last Admin: 05/23/18 23:36 Dose: 5 mg - Labs Labs: 05/23/18 21:19 05/23/18 21:19 PT 12.0 SECONDS (9.7-12.2) 05/23/18 21:19 INR 1.1 05/23/18 21:19 APTT 29 SECONDS (21-34) 05/23/18 21:19 - Head Exam Head Exam: ATRAUMATIC - Eye Exam Eye Exam: Normal appearance - ENT Exam ENT Exam: Mucous Membranes Dry - Respiratory Exam Respiratory Exam: Decreased Breath Sounds - Cardiovascular Exam Cardiovascular Exam: +S1, +S2 - GI/Abdominal Exam GI & Abdominal Exam: Normal Bowel Sounds Assessment and Plan (1) Pleural effusion Assessment & Plan: likely malignant s/p pig tail catheter placement f/u cytology Status: Acute (2) Metastatic breast cancer Assessment & Plan: stage IV triple negative disease declined portacath placement as wants to get opinion at [facility] appointment for immunotherapy trial consideration may require chemotherapy +/- radiotherapy while bridging to trial immunotherapy given degree of symptomatic tumor burden Status: Acute (3) Thrombocytosis Assessment & Plan: reactive to malignancy Status: Acute
--- NOTE | 2018-05-25 19:59 | CP.PCM.PN ---
Subjective - Date & Time of Evaluation Date of Evaluation: 05/24/18 Time of Evaluation: 19:58 - Subjective Subjective: I spoke to the interventional radiologist. Patient underwent a bilateral pigtail catheter insertion. In the evening there was a significant amount of hemorrhagic pleural effusion drainage noted. Patient was continued to have shortness of breath. Placed on BiPAP. Objective - Vital Signs/Intake and Output Vital Signs (last 24 hours): Temp Pulse Resp BP Pulse Ox 97.2 F L 110 H 20 89/67 L 100 05/25/18 15:03 05/25/18 16:00 05/25/18 15:03 05/25/18 15:03 05/25/18 15:03 Intake and Output: 05/25/18 05/26/18 18:59 06:59 Intake Total 300 Output Total 110 Balance 190 - Medications Medications: Current Medications Acetaminophen (Tylenol 325mg Tab) 650 mg PO Q6 PRN PRN Reason: Pain, moderate (4-7) Last Admin: 05/24/18 06:21 Dose: 650 mg Albuterol Sulfate (Albuterol 0.083% Inhal Yanci (2.5 Mg/3 Ml) Ud) 2.5 mg INH RQ4 [facility] Last Admin: 05/25/18 16:03 Dose: 2.5 mg Bisacodyl (Dulcolax) 10 mg [place] DAILY PRN PRN Reason: Constipation Docusate Sodium (Colace) 200 mg PO AC [facility] Last Admin: 05/25/18 17:43 Dose: 200 mg Enoxaparin Sodium (Lovenox) 30 mg SC 1000,2200 [facility] Last Admin: 05/23/18 22:21 Dose: 30 mg Morphine Sulfate (Morphine) 2 mg IVP Q3H PRN PRN Reason: for moderate to severe pain Last Admin: 05/25/18 10:02 Dose: 2 mg Morphine Sulfate (Morphine Immediate Release Tab) 15 mg PO Q6 PRN PRN Reason: Pain, severe (8-10) Potassium Chloride (K-Dur 20 Meq Er Tab) 20 meq PO DAILY [facility] Last Admin: 05/25/18 10:03 Dose: 20 meq Promethazine HCl/Codeine (Phenergan/Codeine Oral Syrup) 5 ml PO Q4 PRN PRN 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
--- NOTE | 2018-05-25 20:00 | CP.PCM.PN ---
Subjective - Date & Time of Evaluation Date of Evaluation: 05/25/18 Time of Evaluation: 20:00 - Subjective Subjective: This morning patient was feeling slightly better, but later started having increasing cough. Shortness of breath noted, placed on BiPAP. Cough medication was given. Bilateral wheezing, decreased air lung entry noted. Vital signs stable. Chest bilateral good air entry, but decreased in the lung duran noted on the lower side Tachycardia noted. Sweating present. Repeat chest x-ray showing improvement in the pleural effusion noted. Vascular congestion noted. Assessment and recommendation: 47-year-old female with metastatic breast cancer with the poor prognosis. Status post bilateral pigtail catheter. We will continue to monitor. IV fluid. BiPAP and will follow the patient Objective - Vital Signs/Intake and Output Vital Signs (last 24 hours): Temp Pulse Resp BP Pulse Ox 97.2 F L 110 H 20 89/67 L 100 05/25/18 15:03 05/25/18 16:00 05/25/18 15:03 05/25/18 15:03 05/25/18 15:03 Intake and Output: 05/25/18 05/26/18 18:59 06:59 Intake Total 300 Output Total 110 Balance 190 - Medications Medications: Current Medications Acetaminophen (Tylenol 325mg Tab) 650 mg PO Q6 PRN PRN Reason: Pain, moderate (4-7) Last Admin: 05/24/18 06:21 Dose: 650 mg Albuterol Sulfate (Albuterol 0.083% Inhal Yanci (2.5 Mg/3 Ml) Ud) 2.5 mg INH RQ4 [facility] Last Admin: 05/25/18 16:03 Dose: 2.5 mg Bisacodyl (Dulcolax) 10 mg [place] DAILY PRN PRN Reason: Constipation Docusate Sodium (Colace) 200 mg PO AC [facility] Last Admin: 05/25/18 17:43 Dose: 200 mg Enoxaparin Sodium (Lovenox) 30 mg SC 1000,2200 [facility] Last Admin: 05/23/18 22:21 Dose: 30 mg Morphine Sulfate (Morphine) 2 mg IVP Q3H PRN PRN Reason: for moderate to severe pain Last Admin: 05/25/18 10:02 Dose: 2 mg Morphine Sulfate (Morphine Immediate Release Tab) 15 mg PO Q6 PRN PRN Reason: Pain, severe (8-10) Potassium Chloride (K-Dur 20 Meq Er Tab) 20 meq PO DAILY [facility] Last Admin: 05/25/18 10:03 Dose: 20 meq Promethazine HCl/Codeine (Phenergan/Codeine Oral Syrup) 5 ml PO Q4 PRN PRN 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
[2018-05-25] MEDS ORDERED: MethylPREDNISolone 40 mg Vial IVP STA (20:50)
--- NOTE | 2018-05-25 21:07 | CP.PCM.PN ---
Subjective - Date & Time of Evaluation Date of Evaluation: 05/23/18 Time of Evaluation: 20:35 - Subjective Subjective: Appreciate Heme/Onc input. Spoke with pt this AM and advised of recommendations. Noted pt's appt with [facility] [place] people for inclusion in immunotherapy clinical trial at [facility] [place]. Additional tests ordered by Heme/Onc. Noted suggestion for portacath placement as well, and placed call to Vascular Surgery for portacath placement. Pt scheduled for procedure in AM. Objective - Vital Signs/Intake and Output Vital Signs (last 24 hours): Temp Pulse Resp BP Pulse Ox 97.2 F L 110 H 20 89/67 L 100 05/25/18 15:03 05/25/18 16:00 05/25/18 15:03 05/25/18 15:03 05/25/18 15:03 Intake and Output: 05/25/18 05/26/18 18:59 06:59 Intake Total 300 Output Total 110 Balance 190 - Medications Medications: Current Medications Acetaminophen (Tylenol 325mg Tab) 650 mg PO Q6 PRN PRN Reason: Pain, moderate (4-7) Last Admin: 05/24/18 06:21 Dose: 650 mg Albuterol Sulfate (Albuterol 0.083% Inhal Yanci (2.5 Mg/3 Ml) Ud) 2.5 mg INH RQ4 [facility] Last Admin: 05/25/18 20:19 Dose: 2.5 mg Bisacodyl (Dulcolax) 10 mg [place] DAILY PRN PRN Reason: Constipation Docusate Sodium (Colace) 200 mg PO AC [facility] Last Admin: 05/25/18 17:43 Dose: 200 mg Enoxaparin Sodium (Lovenox) 30 mg SC 1000,2200 [facility] Last Admin: 05/23/18 22:21 Dose: 30 mg Ceftriaxone Sodium 1 gm/ (Sodium Chloride) 100 mls @ 100 mls/hr IVPB Q12H [facility] PRN Reason: Protocol Dextrose/Sodium Chloride (Dextrose 5%/0.9% Ns 1000 Ml) 1,000 mls @ 50 mls/hr IV .Q20H [facility] Methylprednisolone (Solu-Medrol) 40 mg IVP BID [facility] Morphine Sulfate (Morphine) 2 mg IVP Q3H PRN PRN Reason: for moderate to severe pain Last Admin: 05/25/18 10:02 Dose: 2 mg Morphine Sulfate (Morphine Immediate Release Tab) 15 mg PO Q6 PRN PRN Reason: Pain, severe (8-10) Potassium Chloride (K-Dur 20 Meq Er Tab) 20 meq PO DAILY [facility] Last Admin: 05/25/18 10:03 Dose: 20 meq Promethazine HCl/Codeine (Phenergan/Codeine Oral Syrup) 5 ml PO Q4 PRN 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 Last Admin: 05/25/18 11:43 Dose: 5 ml Promethazine HCl/Dextromethorphan (Phenergan Dm Syrup) 5 ml PO Q6H [facility] Last Admin: 05/25/18 15:50 Dose: Not Given Zolpidem Tartrate (Ambien) 5 mg PO HS PRN PRN Reason: Insomnia Last Admin: 05/23/18 23:36 Dose: 5 mg - Labs Labs: 05/23/18 21:19 05/23/18 21:19 PT 12.0 SECONDS (9.7-12.2) 05/23/18 21:19 INR 1.1 05/23/18 21:19 APTT 29 SECONDS (21-34) 05/23/18 21:19 - Constitutional Appears: In Acute Distress (respiratory, with shallow breaths) - Head Exam Head Exam: ATRAUMATIC, NORMAL INSPECTION - Eye Exam Eye Exam: Normal appearance Pupil Exam: NORMAL ACCOMODATION, PERRL - ENT Exam ENT Exam: Normal Exam - Neck Exam Neck Exam: Normal Inspection - Respiratory Exam Respiratory Exam: Decreased Breath Sounds, Wheezes - Cardiovascular Exam Cardiovascular Exam: REGULAR RHYTHM (tachycardic at times) - GI/Abdominal Exam GI & Abdominal Exam: Firm (non-tender), Diminished Bowel Sounds - Rectal Exam Rectal Exam: Deferred - Extremities Exam Extremities Exam: Normal Inspection - Back Exam Back Exam: NORMAL INSPECTION - Neurological Exam Neurological Exam: CN II-XII Intact, Oriented x3 Neuro motor strength exam: Left Upper Extremity: 4, Right Upper Extremity: 4, Left Lower Extremity: 2/1, Right Lower Extremity: 2/1 - Skin Skin Exam: Dry, Intact Assessment and Plan (1) Metastatic breast cancer Assessment & Plan: stable Status: Acute (2) Dyspnea Assessment & Plan: unchanged Status: Acute (3) Hypoxemia Assessment & Plan: underlying cause still malignancy and pleural effusion, will monitor Status: Acute (4) Fatigue due to sleep pattern disturbance Assessment & Plan: pt afraid to fall asleep at times; daughter at bedside Status: Acute (5) Cough Assessment & Plan: 2ndry to decreased aeration Status: Acute
--- NOTE | 2018-05-25 21:11 | CP.PCM.PN ---
Subjective - Date & Time of Evaluation Date of Evaluation: 05/24/18 Time of Evaluation: 22:20 - Subjective Subjective: Spoke to pt late last night and pt worried she will not make it to [facility] meeting on Tuesday if portacath placed as she does not tolerate pain very well and may need heavy pain meds that will make her thinking cloudy. Upon pt request, requested that surgery postpone said procedure until pt more agreeable to timing. Will reschedule outpatient once pt knows clinical trial requirements. > Seen and evaluated by Pulmonary. Agree with plan for pigtail cath. Had instructed nursing to inform pt that pt could have pigtail or regular chest tube put in for drainage--one was amenable to and could be smaller than usual chest tube. Addendum: Noted Pulmonary notes. ABG with increased CO2 and placed on bipap. Doing better with evacuation of pleural effusion. Objective - Vital Signs/Intake and Output Vital Signs (last 24 hours): Temp Pulse Resp BP Pulse Ox 97.2 F L 110 H 20 89/67 L 100 05/25/18 15:03 05/25/18 16:00 05/25/18 15:03 05/25/18 15:03 05/25/18 15:03 Intake and Output: 05/25/18 05/26/18 18:59 06:59 Intake Total 300 Output Total 110 Balance 190 - Medications Medications: Current Medications Acetaminophen (Tylenol 325mg Tab) 650 mg PO Q6 PRN PRN Reason: Pain, moderate (4-7) Last Admin: 05/24/18 06:21 Dose: 650 mg Albuterol Sulfate (Albuterol 0.083% Inhal Yanci (2.5 Mg/3 Ml) Ud) 2.5 mg INH RQ4 [facility] Last Admin: 05/25/18 20:19 Dose: 2.5 mg Bisacodyl (Dulcolax) 10 mg [place] DAILY PRN PRN Reason: Constipation Docusate Sodium (Colace) 200 mg PO AC [facility] Last Admin: 05/25/18 17:43 Dose: 200 mg Enoxaparin Sodium (Lovenox) 30 mg SC 1000,2200 [facility] Last Admin: 05/23/18 22:21 Dose: 30 mg Ceftriaxone Sodium 1 gm/ (Sodium Chloride) 100 mls @ 100 mls/hr IVPB Q12H [facility] PRN Reason: Protocol Dextrose/Sodium Chloride (Dextrose 5%/0.9% Ns 1000 Ml) 1,000 mls @ 50 mls/hr IV .Q20H [facility] Methylprednisolone (Solu-Medrol) 40 mg IVP BID [facility] Morphine Sulfate (Morphine) 2 mg IVP Q3H PRN PRN Reason: for moderate to severe pain Last Admin: 05/25/18 10:02 Dose: 2 mg Morphine Sulfate (Morphine Immediate Release Tab) 15 mg PO Q6 PRN PRN Reason: Pain, severe (8-10) Potassium Chloride (K-Dur 20 Meq Er Tab) 20 meq PO DAILY [facility] Last Admin: 05/25/18 10:03 Dose: 20 meq Promethazine HCl/Codeine (Phenergan/Codeine Oral Syrup) 5 ml PO Q4 PRN PRN 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 Last Admin: 05/25/18 11:43 Dose: 5 ml Promethazine HCl/Dextromethorphan (Phenergan Dm Syrup) 5 ml PO Q6H [facility] Last Admin: 05/25/18 15:50 Dose: Not Given Zolpidem Tartrate (Ambien) 5 mg PO HS PRN PRN Reason: Insomnia Last Admin: 05/23/18 23:36 Dose: 5 mg - Labs Labs: 05/23/18 21:19 05/23/18 21:19 PT 12.0 SECONDS (9.7-12.2) 05/23/18 21:19 INR 1.1 05/23/18 21:19 APTT 29 SECONDS (21-34) 05/23/18 21:19 Assessment and Plan (1) Metastatic breast cancer Assessment & Plan: s/p pigtail cathether placement today for malignant pleural effusion Status: Acute (2) Dyspnea Status: Acute (3) Hypoxemia Status: Acute (4) Fatigue due to sleep pattern disturbance Status: Acute (5) Cough Status: Acute
[2018-05-25] MEDS: Dextrose 5%/0.9% NS 1,000 ML IV SCH (21:15)
[2018-05-25] MEDS: Enoxaparin 30 mg Syringe SC SCH (21:18)
[2018-05-26] MEDS: Promethazine DM 6.25 mg-15 mg/5 ml Syrup PO SCH ×4 (01:43→19:23)
[2018-05-26] MEDS: Promethazine/Cod 6.25mg-10mg/5ml Syr UD PO PRN ×2 (02:07→11:18)
[2018-05-26] MEDS: Albuterol 0.083% Inhal Sol (2.5 mg/3 mL) UD INH SCH ×7 (03:02→23:39)
[2018-05-26 07:17] LABS: BASO % 0.6 % (0.0-2.0); EOS % 0.2 % (0.0-4.0); HEMOGLOBIN 12.2 g/dL (11.0-16.0); LYMPH % 15.7 % (20.0-40.0); MEAN CELL VOLUME 87.5 fL (81.0-99.0); MEAN CORPUSCULAR HEMOGLOBIN 29.4 pg (27.0-31.0); MEAN CORPUSCULAR HGB CONC 33.6 g/dL (33.0-37.0); MEAN PLATELET VOLUME 6.4 fL (7.2-11.7); MONO # 0.3 K/uL (0.0-0.8); MONO % 4.1 % (0.0-10.0); NEUT % 79.4 % (50.0-75.0); RBC 4.14 Mil/uL (3.80-5.20); RED CELL DISTRIBUTION WIDTH 13.2 % (11.5-14.5); WHITE BLOOD COUNT 6.3 K/uL (4.8-10.8)
[2018-05-26 07:43] LABS: ALBUMIN 3.6 g/dL (3.5-5.0); ALT/SGPT 44 U/L (9-52); AST/SGOT 50 U/L (14-36); BLOOD UREA NITROGEN 10 mg/dL (7-17); CALCIUM 9.1 mg/dl (8.6-10.4); GFR AFRICAN-AMERICAN > 60; GFR NON-AFRICAN AMERICAN > 60
[2018-05-26] MEDS: Enoxaparin 30 mg Syringe SC SCH ×2 (10:18→22:38)
[2018-05-26] MEDS: Potassium Chloride 20 mEq ER Tab PO SCH (10:18)
[2018-05-26] MEDS: MethylPREDNISolone 40 mg Vial IVP SCH ×2 (10:18→17:32)
[2018-05-26 13:11] LABS: ARTERIAL BLOOD GAS HCO3 25.6 mmol/L (21-28); ARTERIAL BLOOD GAS HEMOGLOBIN 13.2 g/dL (11.7-17.4); ARTERIAL BLOOD GAS O2 SAT 99.6 % (95-98); ARTERIAL BLOOD GAS PCO2 51 mm/Hg (35-45); ARTERIAL BLOOD GAS PH 7.34 (7.35-7.45); ARTERIAL BLOOD GAS PO2 187 mm/Hg (80-100); ARTERIAL BLOOD GAS TCO2 29.1 mmol/L (22-28)
--- NOTE | 2018-05-26 13:17 | CP.PCM.PN ---
Subjective - Date & Time of Evaluation Date of Evaluation: 05/26/18 Time of Evaluation: 13:04 - Subjective Subjective: Touched base with most partties involved with pt care and current situation. Pulmonary had ordered bipap for possible home use, and I ordered ABG on NC 3L as per discussion with Pulmonary to see if pt will hold her PO2. Reviewed pt's VS with nurse and pain meds status, the last morphine having been given 05/25 ( today is 1 day after). Lastly, spoke with pt and daughter and inquired as to how pt felt about going home with the pigtail catheter. Patient says that she is not in pain at all with the pigtail cath. Explained also that because the effusion is from her cancer, the possibility that it will recur is almost a certainty. Hence it is my recommendation that she keep it until whatever clinical trials she gets enrolled in is able to control the malignancy and its effects. As to which machine is best for her or that she feels better with, patient says that she doesn't have as much work of breathing with the BiPAP as with a nasal cannula. Daughter noted that she was much more rested after a night on the BiPAP and that she had stopped coughing. Considering that the malignancy is wrapped around the patient's left bronchus impeding airflow, the BiPAP machine pushes oxygen through the obstruction and allows the left lung field to function and oxygenate her blood. wiull If at all possible it is in the patient' s best interest that the BiPAP machine be procured for her home use whatever the outcome may be. Will relay this information to case management to assist in getting approval from [employer]. In the meantime I have ordered and ABG to determine patient's PO2-- this is to be taken on 3 L of oxygen via nasal cannula, on the off-chance that pt'S bIpap is not approved.. Noted pt NPO x 2 days now. When I asked the nurse today, pt's O2 was not humidified and so she was having trouble swallowing bec her throat was very dry. Pt concurred that this was the case. Will start a trial of full liquid diet and observe. Will advance as tolerated. Objective - Vital Signs/Intake and Output Vital Signs (last 24 hours): Temp Pulse Resp BP Pulse Ox 97 F L 105 H 20 92/67 L 100 05/26/18 08:29 05/26/18 08:29 05/26/18 08:29 05/26/18 08:29 05/26/18 08:29 Intake and Output: 05/26/18 05/26/18 06:59 18:59 Intake Total 740 Output Total 375 Balance 365 - Medications Medications: Current Medications Acetaminophen (Tylenol 325mg Tab) 650 mg PO Q6 PRN PRN Reason: Pain, moderate (4-7) Last Admin: 05/24/18 06:21 Dose: 650 mg Albuterol Sulfate (Albuterol 0.083% Inhal Yanci (2.5 Mg/3 Ml) Ud) 2.5 mg INH RQ4 [facility] Last Admin: 05/26/18 07:20 Dose: 2.5 mg Bisacodyl (Dulcolax) 10 mg [place] DAILY PRN PRN Reason: Constipation Docusate Sodium (Colace) 200 mg PO AC [facility] Last Admin: 05/26/18 11:18 Dose: 200 mg Enoxaparin Sodium (Lovenox) 30 mg SC 1000,2200 [facility] Last Admin: 05/26/18 10:18 Dose: 30 mg Ceftriaxone Sodium 1 gm/ (Sodium Chloride) 100 mls @ 100 mls/hr IVPB Q12H [facility] PRN Reason: Protocol Last Admin: 05/26/18 10:18 Dose: 100 mls/hr Dextrose/Sodium Chloride (Dextrose 5%/0.9% Ns 1000 Ml) 1,000 mls @ 50 mls/hr IV .Q20H [facility] Last Admin: 05/25/18 21:15 Dose: 50 mls/hr Methylprednisolone (Solu-Medrol) 40 mg IVP BID [facility] Last Admin: 05/26/18 10:18 Dose: 40 mg Morphine Sulfate (Morphine) 2 mg IVP Q3H PRN PRN Reason: for moderate to severe pain Last Admin: 05/25/18 10:02 Dose: 2 mg Morphine Sulfate (Morphine Immediate Release Tab) 15 mg PO Q6 PRN PRN Reason: Pain, severe (8-10) Potassium Chloride (K-Dur 20 Meq Er Tab) 20 meq PO DAILY [facility] Last Admin: 05/26/18 10:18 Dose: 20 meq Promethazine HCl/Codeine (Phenergan/Codeine Oral Syrup) 5 ml PO Q4 PRN PRN 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 Last Admin: 05/26/18 11:18 Dose: 5 ml Promethazine HCl/Dextromethorphan (Phenergan Dm Syrup) 5 ml PO Q6H [facility] Last Admin: 05/26/18 12:41 Dose: 5 ml Zolpidem Tartrate (Ambien) 5 mg PO HS PRN PRN Reason: Insomnia Last Admin: 05/23/18 23:36 Dose: 5 mg - Labs Labs: 05/26/18 07:04 05/26/18 07:04 PT 12.0 SECONDS (9.7-12.2) 05/23/18 21:19 INR 1.1 05/23/18 21:19 APTT 29 SECONDS (21-34) 05/23/18 21:19 - Constitutional Appears: No Acute Distress, Cachectic (looks very weak) - Head Exam Head Exam: NORMAL INSPECTION, NORMOCEPHALIC (has gotten thinner) - Eye Exam Eye Exam: Normal appearance Pupil Exam: NORMAL ACCOMODATION - ENT Exam ENT Exam: Mucous Membranes Dry - Neck Exam Neck Exam: Full ROM - Respiratory Exam Respiratory Exam: Decreased Breath Sounds (on L; N on R) - Cardiovascular Exam Cardiovascular Exam: REGULAR RHYTHM ( ) Assessment and Plan (1) Metastatic breast cancer Status: Acute (2) Dyspnea Status: Acute (3) Hypoxemia Status: Acute (4) Fatigue due to sleep pattern disturbance Status: Acute (5) Cough Status: Acute
--- NOTE | 2018-05-26 17:38 | CARD ---
APPROVED REPORT Date of service: 05/26/2018 EXAM: Two-dimensional and M-mode echocardiogram with Doppler and color Doppler. INDICATION Congestive Heart Failure Pulmonary edema, cough RISK FACTORS Hyperlipidemia 2D DIMENSIONS IVSd0.7 (0.7-1.1cm)Aortic Root (2D)2.7 (2.0-3.7cm) LVDd3.9 (3.9-5.9cm)PWd0.6 (0.7-1.1cm) LVDs2.7 (2.5-4.0cm)FS (%) 30.8 % LVEF (%)59.0 (>50%) M-Mode DIMENSIONS RVDd0.99 (2.1-3.2cm)Left Atrium (MM)2.17 (2.5-4.0cm) IVSd0.56 (0.7-1.1cm)Aortic Root2.76 (2.2-3.7cm) LVDd4.62 (4.0-5.6cm)Aortic Cusp Exc.1.83 (1.5-2.0cm) PWd0.56 (0.7-1.1cm)FS (%) 41 % LVDs2.74 (2.0-3.8cm)LVEF (%)65 (>50%) Mitral Valve MV E Birqfobv18.6cm/sMV A Vlgivdjg31.5cm/sE/A ratio1.2 TDI E/Lateral E'0.0E/Medial E'0.0 Tricuspid Valve TR Peak [id number]/sTR Peak Gr.[id number] LEFT VENTRICLE The left ventricle is normal size. There is normal left ventricular wall thickness. The left ventricular function is normal. The left ventricular ejection fraction is within the normal range. There is normal LV segmental wall motion. The left ventricular diastolic function is normal. RIGHT VENTRICLE The right ventricle is normal size. There is normal right ventricular wall thickness. The right ventricular systolic function is normal. ATRIA The left atrium size is normal. The right atrium size is normal. AORTIC VALVE The aortic valve is thickened but opens well. No aortic regurgitation is present. There is no aortic valvular stenosis. MITRAL VALVE The mitral valve is normal in structure. There is no evidence of mitral valve prolapse. There is no mitral valve stenosis. TRICUSPID VALVE The tricuspid valve is normal in structure. There is trace tricuspid regurgitation. There is moderate pulmonary hypertension. PULMONIC VALVE The pulmonary valve is normal in structure. There is trace pulmonic valvular regurgitation. GREAT VESSELS The aortic root is normal in size. The IVC is normal in size and collapses >50% with inspiration. PERICARDIAL EFFUSION There is no pericardial effusion. <Conclusion> The left ventricle is normal size. There is normal left ventricular wall thickness. The left ventricular function is normal. The left ventricular ejection fraction is within the normal range. There is normal LV segmental wall motion. The left ventricular diastolic function is normal. There is moderate pulmonary hypertension.
[2018-05-26] MEDS: Dextrose 5%/0.9% NS 1,000 ML IV SCH ×2 (18:00→22:37)
[2018-05-26] MEDS: Morphine 15 mg Immediate Release Tab PO PRN (20:48)
[2018-05-27] MEDS: Promethazine DM 6.25 mg-15 mg/5 ml Syrup PO SCH ×4 (00:25→18:01)
[2018-05-27] MEDS: Albuterol 0.083% Inhal Sol (2.5 mg/3 mL) UD INH SCH ×5 (03:09→19:37)
[2018-05-27] MEDS: Promethazine/Cod 6.25mg-10mg/5ml Syr UD PO PRN ×4 (03:39→22:48)
[2018-05-27] MEDS: Enoxaparin 30 mg Syringe SC SCH ×2 (10:49→21:05)
[2018-05-27] MEDS: MethylPREDNISolone 40 mg Vial IVP SCH ×2 (10:49→17:01)
--- NOTE | 2018-05-27 11:28 | CARD ---
APPROVED REPORT Date of service: 05/21/2018 EKG Measurement Heart [id number] <Conclusion> Sinus tachycardia Otherwise normal ECG
--- NOTE | 2018-05-27 13:25 | CP.PCM.PN ---
Subjective - Date & Time of Evaluation Date of Evaluation: 05/26/18 Time of Evaluation: 13:23 - Subjective Subjective: Patient is still having tachypnea, also tachycardic. Her cough is less forcible. There is scanty mucus coming out. No fever. No chills noted. On and off using BiPAP. Chest decreased air entry in the lung duran. Chest tube is noted, small amount of discharge still present Assessment and recommendation: 47-year-old female with metastatic breast cancer. Now having chest tube, stable at this time, but there is slight worsening of the lung condition noted. Coughing noted. We will continue the BiPAP, bronchodilators, antibiotic. Possibly will discontinue the chest tube one at a time. Objective - Vital Signs/Intake and Output Vital Signs (last 24 hours): Temp Pulse Resp BP Pulse Ox 98.0 F 111 H 18 109/68 99 05/27/18 07:00 05/27/18 12:18 05/27/18 07:00 05/27/18 07:00 05/27/18 07:00 Intake and Output: 05/27/18 05/27/18 06:59 18:59 Intake Total 1000 500 Output Total 65 40 Balance 935 460 - Medications Medications: Current Medications Acetaminophen (Tylenol 325mg Tab) 650 mg PO Q6 PRN PRN Reason: Pain, moderate (4-7) Last Admin: 05/26/18 19:21 Dose: 650 mg Acetylcysteine (Acetylcysteine 20%) 4 ml INH Q6H [facility] Albuterol Sulfate (Albuterol 0.083% Inhal Yanci (2.5 Mg/3 Ml) Ud) 2.5 mg INH RQ4 [facility] Last Admin: 05/27/18 11:12 Dose: 2.5 mg Bisacodyl (Dulcolax) 10 mg [place] DAILY PRN PRN Reason: Constipation Docusate Sodium (Colace) 200 mg PO AC [facility] Last Admin: 05/27/18 07:57 Dose: 200 mg Enoxaparin Sodium (Lovenox) 30 mg SC 1000,2200 [facility] Last Admin: 05/27/18 10:49 Dose: 30 mg Ceftriaxone Sodium 1 gm/ (Sodium Chloride) 100 mls @ 100 mls/hr IVPB Q12H [facility] PRN Reason: Protocol Last Admin: 05/27/18 08:23 Dose: 100 mls/hr Dextrose/Sodium Chloride (Dextrose 5%/0.9% Ns 1000 Ml) 1,000 mls @ 50 mls/hr IV .Q20H [facility] Last Admin: 05/26/18 22:37 Dose: 50 mls/hr Methylprednisolone (Solu-Medrol) 40 mg IVP BID [facility] Last Admin: 05/27/18 10:49 Dose: 40 mg Morphine Sulfate (Morphine) 2 mg IVP Q3H PRN PRN Reason: for moderate to severe pain Last Admin: 05/27/18 08:07 Dose: 2 mg Morphine Sulfate (Morphine Immediate Release Tab) 15 mg PO Q6 PRN PRN Reason: Pain, severe (8-10) Last Admin: 05/26/18 20:48 Dose: 15 mg Promethazine HCl/Codeine (Phenergan/Codeine Oral Syrup) 5 ml PO Q4 PRN PRN 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
--- NOTE | 2018-05-27 13:26 | CP.PCM.PN ---
Subjective - Date & Time of Evaluation Date of Evaluation: 05/27/18 Time of Evaluation: 13:25 - Subjective Subjective: This morning patient seems to be less distress. She was able to eat, drink some liquid diet. Less cough noted. Oxygen saturation was somewhat stable. Vital signs temperature 98 pulse 118 blood pressure 109/68 saturation is 99% on nasal cannula. On examination: Chest decreased air entry in the left lungs noted. Chest x-ray showing evidence of haziness in the left upper lung, mucous plugging possible. Will add Mucomyst. Chest PT. Bronchodilators. Will avoid BiPAP possibly. Continue respiratory support and will follow the patient Objective - Vital Signs/Intake and Output Vital Signs (last 24 hours): Temp Pulse Resp BP Pulse Ox 98.0 F 111 H 18 109/68 99 05/27/18 07:00 05/27/18 12:18 05/27/18 07:00 05/27/18 07:00 05/27/18 07:00 Intake and Output: 05/27/18 05/27/18 06:59 18:59 Intake Total 1000 500 Output Total 65 40 Balance 935 460 - Medications Medications: Current Medications Acetaminophen (Tylenol 325mg Tab) 650 mg PO Q6 PRN PRN Reason: Pain, moderate (4-7) Last Admin: 05/26/18 19:21 Dose: 650 mg Acetylcysteine (Acetylcysteine 20%) 4 ml INH Q6H [facility] Albuterol Sulfate (Albuterol 0.083% Inhal Yanci (2.5 Mg/3 Ml) Ud) 2.5 mg INH RQ4 [facility] Last Admin: 05/27/18 11:12 Dose: 2.5 mg Bisacodyl (Dulcolax) 10 mg [place] DAILY PRN PRN Reason: Constipation Docusate Sodium (Colace) 200 mg PO AC [facility] Last Admin: 05/27/18 07:57 Dose: 200 mg Enoxaparin Sodium (Lovenox) 30 mg SC 1000,2200 [facility] Last Admin: 05/27/18 10:49 Dose: 30 mg Ceftriaxone Sodium 1 gm/ (Sodium Chloride) 100 mls @ 100 mls/hr IVPB Q12H [facility] PRN Reason: Protocol Last Admin: 05/27/18 08:23 Dose: 100 mls/hr Dextrose/Sodium Chloride (Dextrose 5%/0.9% Ns 1000 Ml) 1,000 mls @ 50 mls/hr IV .Q20H [facility] Last Admin: 05/26/18 22:37 Dose: 50 mls/hr Methylprednisolone (Solu-Medrol) 40 mg IVP BID [facility] Last Admin: 05/27/18 10:49 Dose: 40 mg Morphine Sulfate (Morphine) 2 mg IVP Q3H PRN PRN Reason: for moderate to severe pain Last Admin: 05/27/18 08:07 Dose: 2 mg Morphine Sulfate (Morphine Immediate Release Tab) 15 mg PO Q6 PRN PRN Reason: Pain, severe (8-10) Last Admin: 05/26/18 20:48 Dose: 15 mg Promethazine HCl/Codeine (Phenergan/Codeine Oral Syrup) 5 ml PO Q4 PRN PRN 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
[2018-05-27] MEDS: Dextrose 5%/0.9% NS 1,000 ML IV SCH ×2 (13:41→21:05)
[2018-05-27] MEDS: Acetylcysteine 20% Inhal Soln (4ml) INH SCH ×2 (15:35→19:37)
--- NOTE | 2018-05-27 18:08 | RAD ---
Date of service: 05/27/2018 HISTORY: chest tube COMPARISON: Portable chest 05/25/2018. FINDINGS: LUNGS: There is interval complete opacification left apex suggestive of possible loculated pleural effusion or dense atelectasis. The lack of a significant midline shift toward the left of the midline anatomy suggests the former. Clinically correlate. Scattered pulmonary masses remain. No apparent pneumothorax. Bilateral pleural drainage catheters remain in situ at the bilateral bases no basilar left pleural effusion. Mild right pleural effusion in question. PLEURA: As above. CARDIOVASCULAR: Stable cardiac silhouette. No definite pulmonary vascular congestion though left hilar region is obscured. OSSEOUS STRUCTURES: No significant abnormalities. VISUALIZED UPPER ABDOMEN: Normal. OTHER FINDINGS: None. IMPRESSION: Interval probable loculated pleural effusion left apex, favored over atelectasis left upper lobe. Scattered pulmonary masses reiterated bilaterally. Bilateral pleural drainage catheters remain in situ with mild right pleural effusion now present.
--- NOTE | 2018-05-27 19:44 | CP.PCM.PN ---
Subjective - Date & Time of Evaluation Date of Evaluation: 05/26/18 Time of Evaluation: 20:00 - Subjective Subjective: Has some cough. Objective - Vital Signs/Intake and Output Vital Signs (last 24 hours): Temp Pulse Resp BP Pulse Ox 97.5 F L 108 H 22 95/64 L 99 05/27/18 16:00 05/27/18 17:00 05/27/18 16:00 05/27/18 16:00 05/27/18 16:00 Intake and Output: 05/27/18 05/28/18 18:59 06:59 Intake Total 1200 Output Total 55 Balance 1145 - Medications Medications: Current Medications Acetaminophen (Tylenol 325mg Tab) 650 mg PO Q6 PRN PRN Reason: Pain, moderate (4-7) Last Admin: 05/26/18 19:21 Dose: 650 mg Acetylcysteine (Acetylcysteine 20%) 4 ml INH RQ6 [facility] Last Admin: 05/27/18 19:37 Dose: Not Given Albuterol Sulfate (Albuterol 0.083% Inhal Yanci (2.5 Mg/3 Ml) Ud) 2.5 mg INH RQ4 [facility] Last Admin: 05/27/18 19:37 Dose: 2.5 mg Bisacodyl (Dulcolax) 10 mg [place] DAILY PRN PRN Reason: Constipation Docusate Sodium (Colace) 200 mg PO AC [facility] Last Admin: 05/27/18 17:02 Dose: 200 mg Enoxaparin Sodium (Lovenox) 30 mg SC 1000,2200 [facility] Last Admin: 05/27/18 10:49 Dose: 30 mg Ceftriaxone Sodium 1 gm/ (Sodium Chloride) 100 mls @ 100 mls/hr IVPB Q12H [facility] PRN Reason: Protocol Last Admin: 05/27/18 08:23 Dose: 100 mls/hr Dextrose/Sodium Chloride (Dextrose 5%/0.9% Ns 1000 Ml) 1,000 mls @ 50 mls/hr IV .Q20H [facility] Last Admin: 05/27/18 13:41 Dose: Not Given Methylprednisolone (Solu-Medrol) 40 mg IVP BID [facility] Last Admin: 05/27/18 17:01 Dose: 40 mg Morphine Sulfate (Morphine) 2 mg IVP Q3H PRN PRN Reason: for moderate to severe pain Last Admin: 05/27/18 08:07 Dose: 2 mg Morphine Sulfate (Morphine Immediate Release Tab) 15 mg PO Q6 PRN PRN Reason: Pain, severe (8-10) Last Admin: 05/26/18 20:48 Dose: 15 mg Promethazine HCl/Codeine (Phenergan/Codeine Oral Syrup) 5 ml PO Q4 PRN PRN 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 Last Admin: 05/27/18 13:45 Dose: 5 ml Promethazine HCl/Dextromethorphan (Phenergan Dm Syrup) 5 ml PO Q6H [facility] Last Admin: 05/27/18 18:01 Dose: 5 ml Zolpidem Tartrate (Ambien) 5 mg PO HS PRN PRN Reason: Insomnia Last Admin: 05/23/18 23:36 Dose: 5 mg - Labs Labs: 05/26/18 07:04 05/26/18 07:04 PT 12.0 SECONDS (9.7-12.2) 05/23/18 21:19 INR 1.1 05/23/18 21:19 APTT 29 SECONDS (21-34) 05/23/18 21:19 - Head Exam Head Exam: ATRAUMATIC - Eye Exam Eye Exam: Normal appearance - ENT Exam ENT Exam: Mucous Membranes Dry - Respiratory Exam Respiratory Exam: NORMAL BREATHING PATTERN - Cardiovascular Exam Cardiovascular Exam: +S1, +S2 - GI/Abdominal Exam GI & Abdominal Exam: Normal Bowel Sounds Assessment and Plan (1) Pleural effusion Assessment & Plan: likely malignant awaiting cytology has pigtail catheters Status: Acute (2) Metastatic breast cancer Assessment & Plan: stage IV triple negative [place] [facility] [place] markers added [place] prior [place] [facility] [place] radiotherapy if not an immunotherapy candidate Status: Acute (3) Thrombocytosis Assessment & Plan: reactive to malignancy Status: Acute
--- NOTE | 2018-05-27 19:47 | CP.PCM.PN ---
Subjective - Date & Time of Evaluation Date of Evaluation: 05/27/18 Time of Evaluation: 18:00 - Subjective Subjective: Has some cough, family at bedside Objective - Vital Signs/Intake and Output Vital Signs (last 24 hours): Temp Pulse Resp BP Pulse Ox 97.5 F L 108 H 22 95/64 L 99 05/27/18 16:00 05/27/18 17:00 05/27/18 16:00 05/27/18 16:00 05/27/18 16:00 Intake and Output: 05/27/18 05/28/18 18:59 06:59 Intake Total 1200 Output Total 55 Balance 1145 - Medications Medications: Current Medications Acetaminophen (Tylenol 325mg Tab) 650 mg PO Q6 PRN PRN Reason: Pain, moderate (4-7) Last Admin: 05/26/18 19:21 Dose: 650 mg Acetylcysteine (Acetylcysteine 20%) 4 ml INH RQ6 [facility] Last Admin: 05/27/18 19:37 Dose: Not Given Albuterol Sulfate (Albuterol 0.083% Inhal Yanci (2.5 Mg/3 Ml) Ud) 2.5 mg INH RQ4 [facility] Last Admin: 05/27/18 19:37 Dose: 2.5 mg Bisacodyl (Dulcolax) 10 mg [place] DAILY PRN PRN Reason: Constipation Docusate Sodium (Colace) 200 mg PO AC [facility] Last Admin: 05/27/18 17:02 Dose: 200 mg Enoxaparin Sodium (Lovenox) 30 mg SC 1000,2200 [facility] Last Admin: 05/27/18 10:49 Dose: 30 mg Ceftriaxone Sodium 1 gm/ (Sodium Chloride) 100 mls @ 100 mls/hr IVPB Q12H [facility] PRN Reason: Protocol Last Admin: 05/27/18 08:23 Dose: 100 mls/hr Dextrose/Sodium Chloride (Dextrose 5%/0.9% Ns 1000 Ml) 1,000 mls @ 50 mls/hr IV .Q20H [facility] Last Admin: 05/27/18 13:41 Dose: Not Given Methylprednisolone (Solu-Medrol) 40 mg IVP BID [facility] Last Admin: 05/27/18 17:01 Dose: 40 mg Morphine Sulfate (Morphine) 2 mg IVP Q3H PRN PRN Reason: for moderate to severe pain Last Admin: 05/27/18 08:07 Dose: 2 mg Morphine Sulfate (Morphine Immediate Release Tab) 15 mg PO Q6 PRN PRN Reason: Pain, severe (8-10) Last Admin: 05/26/18 20:48 Dose: 15 mg Promethazine HCl/Codeine (Phenergan/Codeine Oral Syrup) 5 ml PO Q4 PRN PRN 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 Last Admin: 05/27/18 13:45 Dose: 5 ml Promethazine HCl/Dextromethorphan (Phenergan Dm Syrup) 5 ml PO Q6H [facility] Last Admin: 05/27/18 18:01 Dose: 5 ml Zolpidem Tartrate (Ambien) 5 mg PO HS PRN PRN Reason: Insomnia Last Admin: 05/23/18 23:36 Dose: 5 mg - Labs Labs: 05/26/18 07:04 05/26/18 07:04 PT 12.0 SECONDS (9.7-12.2) 05/23/18 21:19 INR 1.1 05/23/18 21:19 APTT 29 SECONDS (21-34) 05/23/18 21:19 - Head Exam Head Exam: ATRAUMATIC - Eye Exam Eye Exam: Normal appearance - ENT Exam ENT Exam: Mucous Membranes Dry - Respiratory Exam Respiratory Exam: NORMAL BREATHING PATTERN - Cardiovascular Exam Cardiovascular Exam: +S1, +S2 - GI/Abdominal Exam GI & Abdominal Exam: Normal Bowel Sounds Assessment and Plan (1) Pleural effusion Assessment & Plan: likely malignant, f/u cytology pigtail catheters Status: Acute (2) Metastatic breast cancer Assessment & Plan: stage IV triple negative immunotherapy clinical trial at [facility] [place] immunotherapy markers added to prior biopsy [place] [facility] [place] +/- radiotherapy if not an immunotherapy candidate Status: Acute (3) Thrombocytosis Assessment & Plan: likely reactive to malignancy Status: Acute
[2018-05-28] MEDS: Albuterol 0.083% Inhal Sol (2.5 mg/3 mL) UD INH SCH ×6 (00:34→19:53)
[2018-05-28] MEDS: Acetylcysteine 20% Inhal Soln (4ml) INH SCH ×5 (02:19→19:53)
[2018-05-28] MEDS: Promethazine DM 6.25 mg-15 mg/5 ml Syrup PO SCH ×4 (04:19→19:51)
--- NOTE | 2018-05-28 06:33 | CP.PCM.PN ---
Subjective - Date & Time of Evaluation Date of Evaluation: 05/27/18 Time of Evaluation: 17:25 - Subjective Subjective: received a call from pt's daughter re: possible discharge today per our discussion yesterday. 1) Pt is amenable to going home with pigtail cathether: per Pulmonary would prob not be a good idea to send pt home with an interventional device but the flip side of the argument is that if we do remove the chest tube, pt would reaccumulate her malignant effusion and cause more respiratory distress. this situation is on the extreme and extraordinary, and since pt and children could be relied on to keep the area clean, I would leave it with the pt and her family to decide if they want to keep the chest tube 2) pt needs home O2: per pulmonary, recommended that pt be set up at home with bipap. Had conversation with rep from O2 company and he said per Medicare Guidelines, which is the standard by which other insurance companies base their decisions, only those with COPD and similar conditions are approved for home bipap. Also a sleep study is required prior to providing a CPAP or biPap machine at home I believe, though, that a case can be made for this patient: If the requirement is for at least 5 minutes of desaturation, defined as decrease of O2 sat vas measured via pulse oxximetry in room air in a sleep study, then this pt, even with O2 by NC will desaturate below 90$ O2 sat. This was the main reason why she was admitted. I think that in this case, despite the lack of the inclusionary diagnoses, an exception can be argued. Objective - Vital Signs/Intake and Output Vital Signs (last 24 hours): Temp Pulse Resp BP Pulse Ox 97.5 F L 108 H 22 95/64 L 99 05/27/18 16:00 05/27/18 17:00 05/27/18 16:00 05/27/18 16:00 05/27/18 16:00 Intake and Output: 05/27/18 05/28/18 18:59 06:59 Intake Total 1600 Output Total 65 Balance 1535 - Medications Medications: Current Medications Acetaminophen (Tylenol 325mg Tab) 650 mg PO Q6 PRN PRN Reason: Pain, moderate (4-7) Last Admin: 05/26/18 19:21 Dose: 650 mg Acetylcysteine (Acetylcysteine 20%) 4 ml INH RQ6 [facility] Last Admin: 05/28/18 02:19 Dose: Not Given Albuterol Sulfate (Albuterol 0.083% Inhal Yanci (2.5 Mg/3 Ml) Ud) 2.5 mg INH RQ4 [facility] Last Admin: 05/28/18 03:55 Dose: Not Given Bisacodyl (Dulcolax) 10 mg [place] DAILY PRN PRN Reason: Constipation Docusate Sodium (Colace) 200 mg PO AC [facility] Last Admin: 05/27/18 17:02 Dose: 200 mg Enoxaparin Sodium (Lovenox) 30 mg SC 1000,2200 [facility] Last Admin: 05/27/18 21:05 Dose: 30 mg Ceftriaxone Sodium 1 gm/ (Sodium Chloride) 100 mls @ 100 mls/hr IVPB Q12H [facility] PRN Reason: Protocol Last Admin: 05/27/18 21:05 Dose: 100 mls/hr Methylprednisolone (Solu-Medrol) 40 mg IVP BID [facility] Last Admin: 05/27/18 17:01 Dose: 40 mg Morphine Sulfate (Morphine) 2 mg IVP Q3H PRN PRN Reason: for moderate to severe pain Last Admin: 05/28/18 00:20 Dose: 2 mg Morphine Sulfate (Morphine Immediate Release Tab) 15 mg PO Q6 PRN PRN Reason: Pain, severe (8-10) Last Admin: 05/26/18 20:48 Dose: 15 mg Promethazine HCl/Codeine (Phenergan/Codeine Oral Syrup) 5 ml PO Q4 PRN 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 Last Admin: 05/27/18 22:48 Dose: 5 ml Promethazine HCl/Dextromethorphan (Phenergan Dm Syrup) 5 ml PO Q6H [facility] Last Admin: 05/28/18 04:19 Dose: Not Given Zolpidem Tartrate (Ambien) 5 mg PO HS PRN PRN Reason: Insomnia Last Admin: 05/27/18 21:04 Dose: 5 mg - Labs Labs: 05/26/18 07:04 05/26/18 07:04 PT 12.0 SECONDS (9.7-12.2) 05/23/18 21:19 INR 1.1 05/23/18 21:19 APTT 29 SECONDS (21-34) 05/23/18 21:19 - Constitutional Appears: Cachectic - Head Exam Head Exam: NORMAL INSPECTION, NORMOCEPHALIC - Eye Exam Eye Exam: Normal appearance Pupil Exam: NORMAL ACCOMODATION - ENT Exam ENT Exam: Mucous Membranes Dry, Normal Exam (+JVD) - Respiratory Exam Respiratory Exam: Decreased Breath Sounds (breath sounds R>L, + occ wheeze) - Cardiovascular Exam Cardiovascular Exam: REGULAR RHYTHM - GI/Abdominal Exam GI & Abdominal Exam: Hypoactive Bowel Sounds - Rectal Exam Rectal Exam: Deferred - Extremities Exam Extremities Exam: Normal Inspection - Back Exam Back Exam: NORMAL INSPECTION - Neurological Exam Neuro motor strength exam: Left Upper Extremity: 3, Right Upper Extremity: 3, Left Lower Extremity: 3, Right Lower Extremity: 3 - Psychiatric Exam Psychiatric exam: Depressed, Flat Affect - Skin Skin Exam: Diaphoretic, Intact, Normal Color Assessment and Plan (1) Pleural effusion Assessment & Plan: almost 2 L drained from both lung duran at initial placement of chest tube. and roughly puts out about 30 ml total daily. if chest tube cannot go home with pt, will have to d/c chest tube today to ensure that no pneumonothoraces develop. Status: Acute (2) Metastatic breast cancer Assessment & Plan: stable, xrays remain unchanged cancer mackey although suspect mucus plugging per pulmonary Status: Acute (3) Dyspnea Assessment & Plan: improved with off and on bipap to blow of CO2 Status: Acute (4) Hypoxemia Assessment & Plan: plan to request an exception with pt's insurance if they will consider a bipap in this situation? otherwise, will need to set up home O2 and O2 tanks be at pt' s house before I will discharge pt Status: Acute (5) Fatigue due to sleep pattern disturbance Assessment & Plan: appeared to have more energy today than yesterday Status: Acute (6) Cough Assessment & Plan: present and expected. Status: Acute
[2018-05-28] MEDS: Promethazine/Cod 6.25mg-10mg/5ml Syr UD PO PRN ×2 (09:34→22:09)
[2018-05-28] MEDS: MethylPREDNISolone 40 mg Vial IVP SCH ×2 (09:35→17:08)
[2018-05-28] MEDS: Enoxaparin 30 mg Syringe SC SCH ×2 (09:37→22:09)
[2018-05-28] MEDS: Morphine 15 mg Immediate Release Tab PO PRN (19:32)
--- NOTE | 2018-05-28 21:42 | CP.PCM.PN ---
Subjective - Date & Time of Evaluation Date of Evaluation: 05/28/18 Time of Evaluation: 21:42 - Subjective Subjective: She now feeling slightly better than yesterday. She is able to cough and able to produce the mucus is better than yesterday. Less wheezing and less stress noted. Mildly tachypnea noted. Vital signs otherwise stable On examination: Chest bilateral good air entry, but minimal expiratory wheezing present. Mildly tachycardia noted. Regular heart sound Abdomen soft nontender No pedal edema Today no labs noted Spoke to the patient's family with the kids Assessment and recommendation: 47-year-old female with metastatic breast cancer with bilateral pleural effusion. Metastasis involving the lungs. Left upper lung haziness noted, posteriorly mucus plugging noted. Currently better. We will repeat the x-ray tomorrow. We will remove the chest tubes tomorrow. And after that the possibly discharge. Will follow-up the patient Objective - Vital Signs/Intake and Output Vital Signs (last 24 hours): Temp Pulse Resp BP Pulse Ox 98.3 F 111 H 20 104/67 99 05/28/18 16:00 05/28/18 16:00 05/28/18 16:00 05/28/18 16:00 05/28/18 16:00 Intake and Output: 05/28/18 05/29/18 18:59 06:59 Output Total 170 Balance -170 - Medications Medications: Current Medications Acetaminophen (Tylenol 325mg Tab) 650 mg PO Q6 PRN PRN Reason: Pain, moderate (4-7) Last Admin: 05/26/18 19:21 Dose: 650 mg Acetylcysteine (Acetylcysteine 20%) 4 ml INH RQ6 [facility] Last Admin: 05/28/18 19:53 Dose: 4 ml Albuterol Sulfate (Albuterol 0.083% Inhal Yanci (2.5 Mg/3 Ml) Ud) 2.5 mg INH RQ4 [facility] Last Admin: 05/28/18 19:53 Dose: 2.5 mg Bisacodyl (Dulcolax) 10 mg [place] DAILY PRN PRN Reason: Constipation Docusate Sodium (Colace) 200 mg PO AC [facility] Last Admin: 05/28/18 17:08 Dose: 200 mg Enoxaparin Sodium (Lovenox) 30 mg SC 1000,2200 [facility] Last Admin: 05/28/18 09:37 Dose: 30 mg Ceftriaxone Sodium 1 gm/ (Sodium Chloride) 100 mls @ 100 mls/hr IVPB Q12H [facility] PRN Reason: Protocol Last Admin: 05/28/18 09:35 Dose: 100 mls/hr Methylprednisolone (Solu-Medrol) 40 mg IVP BID [facility] Last Admin: 05/28/18 17:08 Dose: 40 mg Morphine Sulfate (Morphine) 2 mg IVP Q3H PRN PRN Reason: for moderate to severe pain Last Admin: 05/28/18 00:20 Dose: 2 mg Morphine Sulfate (Morphine Immediate Release Tab) 15 mg PO Q6 PRN PRN Reason: Pain, severe (8-10) Last Admin: 05/28/18 19:32 Dose: 15 mg Promethazine HCl/Codeine (Phenergan/Codeine Oral Syrup) 5 ml PO Q4 PRN PRN Reason: rippler depression Last Admin: 05/28/18 09:34 Dose: 5 ml Promethazine HCl/Dextromethorphan (Phenergan Dm Syrup) 5 ml PO Q6H [facility] Last Admin: 05/28/18 19:51 Dose: Not Given Zolpidem Tartrate (Ambien) 5 mg PO HS PRN PRN Reason: Insomnia Last Admin: 05/27/18 21:04 Dose: 5 mg - Labs Labs: 05/26/18 07:04 05/26/18 07:04 PT 12.0 SECONDS (9.7-12.2) 05/23/18 21:19 INR 1.1 05/23/18 21:19 APTT 29 SECONDS (21-34) 05/23/18 21:19
[2018-05-29] MEDS: Albuterol 0.083% Inhal Sol (2.5 mg/3 mL) UD INH SCH ×5 (00:30→15:48)
[2018-05-29] MEDS: Promethazine DM 6.25 mg-15 mg/5 ml Syrup PO SCH ×3 (01:00→13:04)
[2018-05-29] MEDS: Acetylcysteine 20% Inhal Soln (4ml) INH SCH ×3 (03:53→14:00)
[2018-05-29 05:16] VITALS: O2SAT 100
[2018-05-29 07:03] LABS: BASO % 0.5 % (0.0-2.0); EOS # 0.1 K/uL (0.0-0.7); EOS % 1.6 % (0.0-4.0); HEMOGLOBIN 11.7 g/dL (11.0-16.0); LYMPH # 2.1 K/uL (1.0-4.3); LYMPH % 26.6 % (20.0-40.0); MEAN CORPUSCULAR HEMOGLOBIN 28.2 pg (27.0-31.0); MEAN CORPUSCULAR HGB CONC 32.5 g/dL (33.0-37.0); MEAN PLATELET VOLUME 6.2 fL (7.2-11.7); MONO # 0.9 K/uL (0.0-0.8); MONO % 11.3 % (0.0-10.0); NEUT # 4.8 K/uL (1.8-7.0); NRBC % 0.1 % (0.0-2.0); RBC 4.14 Mil/uL (3.80-5.20); RED CELL DISTRIBUTION WIDTH 13.2 % (11.5-14.5)
[2018-05-29 07:49] VITALS: BP 95/56; RESP 18; TEMP 97.5
[2018-05-29 08:26] LABS: ALB/GLOB RATIO 1.1 (1.0-2.1); ALBUMIN 3.3 g/dL (3.5-5.0); ALT/SGPT 48 U/L (9-52); AST/SGOT 44 U/L (14-36); BLOOD UREA NITROGEN 10 mg/dL (7-17); CALCIUM 8.7 mg/dl (8.6-10.4); GFR AFRICAN-AMERICAN > 60; GFR NON-AFRICAN AMERICAN > 60
[2018-05-29] MEDS: MethylPREDNISolone 40 mg Vial IVP SCH (09:04)
[2018-05-29] MEDS: Enoxaparin 30 mg Syringe SC SCH (09:10)
--- NOTE | 2018-05-29 09:32 | RAD ---
Date of service: 05/29/2018 HISTORY: pna COMPARISON: 05/27/2018 FINDINGS: LUNGS: Left upper lobe/at the opacity has cleared extensively. Right basilar opacity persists. Linear opacity mid right lung possibly fluid within minor fissure. PLEURA: Small right pleural effusion. No left pleural effusion. No pneumothorax. CARDIOVASCULAR: Normal. OSSEOUS STRUCTURES: No significant abnormalities. VISUALIZED UPPER ABDOMEN: Normal. OTHER FINDINGS: None. IMPRESSION: Persistent right basilar opacity. Small left pleural effusion. Extensive clearing of left upper lobe/apical opacity.
--- NOTE | 2018-05-29 10:27 | US ---
PROCEDURE: Date of procedure: Procedure: 1. Placement of right and left chest tube with ultrasound guidance Medications: 8 cc 1 percent lidocaine. HISTORY: Loculated left and right pleural effusion TECHNIQUE: Following informed consent and procedure time-out, the patient's right and left anterior chest was marked, prepped and draped in the usual sterile fashion. Ultrasound showed a loculated left pleural effusion and a loculated right pleural effusion. After the skin was anesthetized with 1% lidocaine and, a [place] catheter was advanced under ultrasound guidance into the left pleural space. The catheter was exchanged over an 035 guidewire and tract was dilated to accommodate a 8.5 [place] pigtail catheter formed within the pleural space. There is return of serosanguinous fluid. The catheter was secured to patient's skin. A xeroform dressing was applied. The catheter was then attached to a pleurovac. Following placement of left pleural drainage catheter, a right pleural drainage catheter was placed. A [place] catheter was advanced under ultrasound guidance into the right pleural space. The catheter was exchanged over an 035 guidewire and tract was dilated to accommodate a 8.5 [place] pigtail catheter formed within the pleural space. There is return of serosanguinous fluid. The catheter was secured to patient's skin. A xeroform dressing was applied. The catheter was then attached to a pleurovac. IMPRESSION: Placement of an 8.5 [place] left and right pleural drainage catheter. There were no immediate complications.
[2018-05-29 11:19] VITALS: PULSE 108
--- NOTE | 2018-05-29 14:24 | RAD ---
Date of service: 05/29/2018 HISTORY: Status post right and left chest tubes removal COMPARISON: 05/29/2018 FINDINGS: LUNGS: There is no pneumothorax following chest tube removal. Pleural and parenchymal opacities are stable when compared to chest x-ray done earlier today. PLEURA: Small right pleural effusion CARDIOVASCULAR: Normal. OSSEOUS STRUCTURES: No significant abnormalities. VISUALIZED UPPER ABDOMEN: Normal. OTHER FINDINGS: None. IMPRESSION: No pneumothorax following chest tube removal.
--- NOTE | 2018-05-29 15:59 | CP.PCM.PN ---
Subjective - Date & Time of Evaluation Date of Evaluation: 05/29/18 Time of Evaluation: 15:51 - Subjective Subjective: HR 109-BP 97/63- O2 SAT AT REST AND ROOM AIR 92%. -FOLLOW UP WITH DR. ARCE IN THE OFFICE WITHIN 1-2 WEEKS. -FOLLOW UP WITH DR. SHAH IN THE OFFICE WITHIN 3-5 DAYS---CALL FOR APPOINTMENT TIME. DURING THIS VISIT YOU SHOULD DISCUSS WITH DR. SHAH TREATMENT OPTIONS. -ONCE YOU HAVE DISCUSSED TREATMENT AND CARE PLAN WITH DR. SHAH, MAKE AN APPOINTMENT FOR A RAD[facility] CATH INSERTION. -DR. ARCE WILL SEND PAIN MEDICINE TO YOUR PHARMACY. -PER DR. MARINELLI'S REQUEST, THE FOLLOWING MEDICATIONS HAVE ALSO BEEN PRESCRIBED TO YOU AND SENT TO YOUR PHARMACY: 1) GABAPENTIN 100 MG---TAKE ONE TABLET ONCE A DAY. 2) AVELOX 400 MG---TAKE ONE TABLET ONCE A DAY FOR 5 DAYS. 3) PROMETHAZINE DM---TAKE 5 ML BY MOUTH EVERY 6 HOURS ONLY IF YOU HAVE COUGH AND CONGESTION. 4) PREDNISONE (STEROID FOR YOUR BREATHING)---TAKE EXACTLY PRESCRIBED; EACH DAY THE DOSE WILL CHANGE; FOLLOW DIRECTIONS PROVIDED WITH THE PRESCRIPTION BOTTLE UNTIL YOU HAVE COMPLETED THE MEDICATION. -MAKE SURE YOU TAKE THE COPIES OF YOUR TESTS TO [facility] FOR YOUR APPOINTMENT ON TUESDAY AT 4:00 PM. -FOR FURTHER CONCERNS OR QUESTIONS, CONTACT DR. ARCE'S OFFICE. Objective - Vital Signs/Intake and Output Vital Signs (last 24 hours): Temp Pulse Resp BP Pulse Ox 97.5 F L 108 H 18 95/56 L 100 05/29/18 07:00 05/29/18 09:00 05/29/18 07:00 05/29/18 07:00 05/29/18 07:00 Intake and Output: 05/29/18 05/29/18 06:59 18:59 Intake Total 500 Output Total 420 Balance 80 - Medications Medications: Current Medications Acetaminophen (Tylenol 325mg Tab) 650 mg PO Q6 PRN PRN Reason: Pain, moderate (4-7) Last Admin: 05/26/18 19:21 Dose: 650 mg Acetylcysteine (Acetylcysteine 20%) 4 ml INH RQ6 [facility] Last Admin: 05/29/18 14:00 Dose: Not Given Albuterol Sulfate (Albuterol 0.083% Inhal Yanci (2.5 Mg/3 Ml) Ud) 2.5 mg INH RQ4 [facility] Last Admin: 05/29/18 15:48 Dose: 2.5 mg Bisacodyl (Dulcolax) 10 mg SC DAILY PRN PRN Reason: Constipation Docusate Sodium (Colace) 200 mg PO AC [facility] Last Admin: 05/29/18 13:04 Dose: 200 mg Enoxaparin Sodium (Lovenox) 30 mg SC 1000,2200 [facility] Last Admin: 05/29/18 09:10 Dose: 30 mg Ceftriaxone Sodium 1 gm/ (Sodium Chloride) 100 mls @ 100 mls/hr IVPB Q12H [facility] PRN Reason: Protocol Last Admin: 05/29/18 09:18 Dose: 100 mls/hr Methylprednisolone (Solu-Medrol) 40 mg IVP BID [facility] Last Admin: 05/29/18 09:04 Dose: 40 mg Morphine Sulfate (Morphine) 2 mg IVP Q3H PRN PRN Reason: for moderate to severe pain Last Admin: 05/29/18 08:39 Dose: 2 mg Morphine Sulfate (Morphine Immediate Release Tab) 15 mg PO Q6 PRN PRN Reason: Pain, severe (8-10) Last Admin: 05/28/18 19:32 Dose: 15 mg Promethazine HCl/Codeine (Phenergan/Codeine Oral Syrup) 5 ml PO Q4 PRN 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
--- NOTE | 2018-05-29 17:14 | CP.PCM.PN ---
Subjective - Date & Time of Evaluation Date of Evaluation: 05/29/18 Time of Evaluation: 17:14 - Subjective Subjective: Patient chest tubes were removed this morning. She is feeling much better. No pain noted. Mild tachypnea noted. Room air oxygen saturation is 92%. On examination: Vital signs stable. Chest bilateral good air entry. Regular heart sound. Nontender abdomen Chest x-ray showing no evidence of any pneumothorax Labs reviewed Assessment and recommendation: 47-year-old female admitted with malignant pleural effusion. Metastatic breast cancer. Currently status post a chest tube drainage. Clinically stable. She will get the home oxygen, she will be discharged home today by PMD, she will follow-up with her oncologist. Objective - Vital Signs/Intake and Output Vital Signs (last 24 hours): Temp Pulse Resp BP Pulse Ox 97.5 F L 108 H 18 95/56 L 100 05/29/18 07:00 05/29/18 09:00 05/29/18 07:00 05/29/18 07:00 05/29/18 07:00 Intake and Output: 05/29/18 05/29/18 06:59 18:59 Intake Total 500 Output Total 420 Balance 80 - Labs Labs: 05/29/18 06:32 05/29/18 06:32 PT 12.0 SECONDS (9.7-12.2) 05/23/18 21:19 INR 1.1 05/23/18 21:19 APTT 29 SECONDS (21-34) 05/23/18 21:19
== END 2018-05-29 17:05 | disposition home or self-care (01) | DRG 181 ==
LOC: C.ER 11:41 → C.9E 16:47 → C.6T 17:21
PROVIDERS: ADMIT Family Medicine; ATTEND Family Medicine
PROC: 0W9B30Z Drainage of Left Pleural Cavity with Drainage Device, Percutaneous Approach (ICD-10-PCS; principal; 2018-05-24)
PROC: 0W9930Z Drainage of Right Pleural Cavity with Drainage Device, Percutaneous Approach (ICD-10-PCS; 2018-05-24)
PROC: 5A09557 Assistance with Respiratory Ventilation, Greater than 96 Consecutive Hours, Continuous Positive Airway Pressure (ICD-10-PCS; 2018-05-24)
DX: J91.0 Malignant pleural effusion (principal); C78.00 Secondary malignant neoplasm of unspecified lung; C50.919 Malignant neoplasm of unspecified site of unspecified female breast; R09.02 Hypoxemia; G47.9 Sleep disorder, unspecified; R53.83 Other fatigue; D47.3 Essential (hemorrhagic) thrombocythemia; Z17.1 Estrogen receptor negative status [ER-]; R00.0 Tachycardia, unspecified; Z80.41 Family history of malignant neoplasm of ovary